=== PATIENT | male | born 1970 | race Caucasian/White ===

== ENCOUNTER 2016-12-10 22:37 | Emergency (ER) | payer MEDICAID ==
[~2016-12-10] VITALS: Ht 180.3 cm; Wt 68.0 kg
[2016-12-10 22:45] VITALS: BP 149/100
--- NOTE | 2016-12-11 06:03 | NUR ---
TO ER BED 5
--- NOTE | 2016-12-11 06:03 | NUR ---
47 Y/O M W/C/O CHEST PAIN WHILE LYING DOWN,BOTH HANDS TINGLING FOR 2 DAYS. NO S/S OF DISTRESS NOTED AT THE MOMENT.
[2016-12-11] MEDS ORDERED: DICYCLOMINE HCL LIQUID 20 MG, ALUMINUM HYD/MAG/SIMETHICONE 30 ML, LIDOCAINE VISCOUS 2% ... PO ONE ×3 (07:00)
[2016-12-11] MEDS ORDERED: KETOROLAC 60 MG/2 ML VIAL IM ONE (07:00)
[2016-12-11] MEDS ORDERED: ONDANSETRON 4 MG ODT PO ONE (07:00)
--- NOTE | 2016-12-11 07:02 | NUR ---
REPORT GIVEN TO MARIA ALEJANDRA MEDRANO. PT STABLE ON MONITOR.
--- NOTE | 2016-12-11 07:08 | NUR ---
REPORT GIVEN TO MARIA ALEJANDRA EATON.
--- NOTE | 2016-12-11 07:08 | NUR ---
RECEIVED REPORT FROM MARIA ALEJANDRA CAMACHO.Patient appears to be resting comfortably in bed. Vital Signs within normal limits. Respirations even and unlabored.WILL CONTINUE TO MONITOR
[2016-12-11 07:34] LABS: BASOPHILS # (AUTO) 0.6 K/uL (0.00-0.22); BASOPHILS % (AUTO) 4.3 % (0.0-2.0); EOSINOPHILS # (AUTO) 0.1 K/uL (0-0.4); EOSINOPHILS % (AUTO) 0.7 % (0.0-4.0); HEMATOCRIT 51.1 % (36-52); LYMPHOCYTES # (AUTO) 1.1 K/uL (2.0-11.5); LYMPHOCYTES % (AUTO) 7.5 % (20.5-51.1); MEAN CORPUSCULAR HEMOGLOBIN 31 pg (27-31); MEAN CORPUSCULAR HGB CONC 33 g/dL (33-37); MEAN CORPUSCULAR VOLUME 93 fL (80-94); MONOCYTES # (AUTO) 1.3 K/uL (0.8-1.0); MONOCYTES % (AUTO) 8.3 % (1.7-9.3); NEUTROPHILS % (AUTO) 79.2 % (42.2-75.2); PLATELET COUNT (AUTO) 279 K/uL (140-450); RED BLOOD CELL COUNT(AUTO) 5.47 MIL/uL (4.20-6.10); RED CELL DISTRIBUTION WIDTH 12.2 % (11.6-13.7)
[2016-12-11 07:50] LABS: ANION GAP 13.2 (8-16); CARBON DIOXIDE 29.9 mmol/L (21-32); CREATININE 0.8 mg/dL (0.6-1.3); POTASSIUM 3.1 mmol/L (3.5-5.1)
[2016-12-11 07:53] LABS: WHITE BLOOD COUNT (AUTO) 15.1 K/uL (4.8-10.8)
[2016-12-11] MEDS ORDERED: POTASSIUM CHLORIDE 10 MEQ TABER PO ONE ×2 (08:00→08:15)
[2016-12-11 08:03] LABS: ALBUMIN 3.6 g/dL (3.4-5.0); TOTAL PROTEIN, SERUM 7.5 g/dL (6.4-8.2)
[2016-12-11 09:18] VITALS: BP 128/83
--- NOTE | 2016-12-11 09:18 | NUR ---
Patient discharged with v/s stable. Written and verbal after care instructions given and explained. Patient verbalized understanding. Ambulatory with steady gait. All questions addressed prior to discharge. Advised to follow up with PMD.
== END 2016-12-11 09:18 | disposition home or self-care (01) ==
LOC: MED 22:37 → EDBD 22:37 → MED 12-11 09:18
DX: G62.9 Polyneuropathy, unspecified (principal); E87.6 Hypokalemia; F19.10 Other psychoactive substance abuse, uncomplicated; R07.89 Other chest pain
CPT/HCPCS: 36415; 71010; 80053; 83880; 84484; 85025; 93005; 96372; 99285; J1885; Q0092; S0119

== ENCOUNTER 2017-02-28 16:28 | Inpatient (IN) | payer MEDICAID ==
[~2017-02-28] VITALS: Ht 180.3 cm; Wt 68.0 kg
[2017-02-28 16:46] VITALS: BP 148/104
--- NOTE | 2017-02-28 16:49 | NUR ---
PATIENT TO LOBBY PER ERMD
[2017-02-28] MEDS ORDERED: IBUPROFEN 600 MG TAB PO ONE (17:45)
[2017-02-28] MEDS ORDERED: CYCLOBENZAPRINE 10 MG TAB PO ONE (17:45)
[2017-02-28] MEDS ORDERED: ACETAMINOPHEN EXTRA STRENGTH 500 MG TAB PO ONE (17:45)
--- NOTE | 2017-02-28 17:48 | NUR ---
Pt placed in bed 7 via w/c.
[2017-02-28] MEDS ORDERED: KETOROLAC 60 MG/2 ML VIAL IM ONE (17:50)
[2017-02-28] MEDS ORDERED: ONDANSETRON 4 MG ODT PO ONE (17:55)
--- NOTE | 2017-02-28 18:01 | NUR ---
Patient being evaluated by physician at bedside.
--- NOTE | 2017-02-28 18:12 | NUR ---
46/M biba for evaluation of lower back pain. Pt is homeless. Pt denies any injury or trauma to back. Pt states he has had the pain for the past 5 years but worse today. Pt c/o 10/10 pain. Pt also c/o N/V. No vomiting noted at this time while pt is in bed 7. Pt is AOX4, speech garbled. Afebrile. VSS.
--- NOTE | 2017-02-28 18:16 | NUR ---
Pt taken to CT via rkath.
--- NOTE | 2017-02-28 18:31 | NUR ---
Pt returned from CT scan and placed in bed 7.
--- NOTE | 2017-02-28 18:40 | NUR ---
Patient appears to be resting comfortably in bed. Pt continues to c/o 10/10 pain. Pt is lying on left side, with blanket over his head.
[2017-02-28] MEDS ORDERED: ATROPINE 0.5 MG/5 ML SYR IVP ONE (18:55)
--- NOTE | 2017-02-28 18:55 | NUR ---
ATROPINE 0.5 MG IVP NOT GIVEN WITH THE INSTRUCTION OF DR. SINGLETON TO GIVE IT WHEN HR REACH TO 40 BPM. HEART RATE BEEN 55-70.
--- NOTE | 2017-02-28 18:55 | NUR ---
PATIENT BEEN ASYMPTOMATIC. CONTINUE TO MONITOR
--- NOTE | 2017-02-28 18:57 | NUR ---
X-Ray at bedside.
--- NOTE | 2017-02-28 19:16 | NUR ---
defib pads applied to chest per Dr. Russell order for precaution.
[2017-02-28 19:19] LABS: BASOPHILS # (AUTO) 0.1 K/uL (0.00-0.22); BASOPHILS % (AUTO) 0.9 % (0.0-2.0); EOSINOPHILS # (AUTO) 0.2 K/uL (0-0.4); HEMATOCRIT 45.8 % (36-52); LYMPHOCYTES # (AUTO) 0.7 K/uL (2.0-11.5); LYMPHOCYTES % (AUTO) 6.9 % (20.5-51.1); MEAN CORPUSCULAR HEMOGLOBIN 32 pg (27-31); MEAN CORPUSCULAR HGB CONC 33 g/dL (33-37); MEAN CORPUSCULAR VOLUME 97 fL (80-94); MONOCYTES # (AUTO) 0.9 K/uL (0.8-1.0); MONOCYTES % (AUTO) 8.5 % (1.7-9.3); NEUTROPHILS # (AUTO) 8.4 K/uL (1.8-7.7); NEUTROPHILS % (AUTO) 81.7 % (42.2-75.2); PLATELET COUNT (AUTO) 230 K/uL (140-450); RED BLOOD CELL COUNT(AUTO) 4.74 MIL/uL (4.20-6.10); RED CELL DISTRIBUTION WIDTH 12.3 % (11.6-13.7); WHITE BLOOD COUNT (AUTO) 10.3 K/uL (4.8-10.8)
--- NOTE | 2017-02-28 19:24 | NUR ---
Pt report given to Jenaro BESS. Transfer of care at this time.
[2017-02-28 19:33] LABS: INR 1.1 (0.8-1.2); PARTIAL THROMBOPLASTIN TIME 27.4 secs (22-35.6); PROTHROMBIN TIME 10.9 secs (10.8-13.4)
[2017-02-28 19:35] LABS: ALBUMIN 3.7 g/dL (3.4-5.0); ANION GAP 10.2 (8-16); CALCIUM 8.5 mg/dL (8.5-10.1); CREATININE 0.9 mg/dL (0.7-1.3); POTASSIUM 4.2 mmol/L (3.5-5.1); TOTAL BILIRUBIN 0.6 mg/dL (0.0-1.0); TOTAL PROTEIN, SERUM 7.2 g/dL (6.4-8.2)
[2017-02-28] MEDS ORDERED: HYDROcodone/APAP 7.5/325 MG 1 TAB PO PRN (19:40)
[2017-02-28] MEDS ORDERED: MORPHINE SULFATE 2 MG/ML SYR IVP PRN (19:40)
[2017-02-28] MEDS ORDERED: ACETAMINOPHEN 325 MG TAB PO PRN (19:40)
[2017-02-28] MEDS ORDERED: DEXAMETHASONE 10 MG/ML VIAL IVP ONE (19:40)
[2017-02-28] MEDS ORDERED: DOCUSATE SODIUM 100 MG GELCAP PO PRN (19:40)
--- NOTE | 2017-02-28 19:44 | NUR ---
Patient appears to be resting comfortably in bed. Vital Signs within normal limits. Respirations even and unlabored.
[2017-02-28] MEDS ORDERED: LORazepam 0.5 MG TAB PO PRN (20:05)
--- NOTE | 2017-02-28 20:13 | NUR ---
Patient will be admitted to care of DR CONTE. Admited to TELE 111A . Will go to room 111A. Belongings list completed. Report to AMEENA BESS .
--- NOTE | 2017-02-28 20:13 | NUR ---
ATROPINE 0.5 MG IVP NOT GIVEN WITH THE INSTRUCTION OF DR. SINGLETON TO GIVE IT WHEN HR REACH TO 40 BPM. HEART RATE BEEN 57 NOW. AMEENA BESS HAS BEEN INFORMED
[2017-02-28 20:21] LABS: CHOL/HDL RATIO 2.1 (1-4.5); MAGNESIUM 1.9 mg/dL (1.8-2.4); PHOSPHORUS 2.7 mg/dL (2.5-4.9); THYROID STIMULATING HORMONE 3.08 uIU/mL (0.34-3.74)
--- NOTE | 2017-02-28 20:30 | NUR ---
ADMITTED A 46 Y/O MALE FROM ED VIA [facility] FRAIRE. PT ON TELEMETRY FOR DX OF BRADYCARDIA. UPON FACE TO FACE ASSESSMENT, PT PRESENTS ANGRY MOOD EVIDENCE BY THROWING THE PHONE. PT IS SO ANXIOUS, WANTING TO CALL HIS BROTHER. ATTEMPTED TO DE-ESCALATE PATIENT'S BX AND REDIRECT HIM,HOWEVER, PT STARTS THREATENING STAFF AND THROWING AGAIN THE PHONE. CHARGE NURSE AND SECURITY ON SCENE. PT PULLED HIS IV ACCESS,REINFORCED DRESSING TO STOP THE BLEEDING. TRANSFERRED PT TO ANOTHER ROOM FOR ROOMMATE'S SAFETY. THIS SUCCESS COACH DIALED THE PHONE AND WAS ABLE TO CONTACT SYMONE (BROTHER), PT ABLE TO TALK TO HIS BROTHER. SECURITY AT THE BEDSIDE. WILL CALL MD FOR ORDERS. Admitted from , with chief complaint of RIGHT LOW BACK PAIN , 46 y/o ,Male, Appropriate, oriented to call light, bed, phone,television, bathroom, smoking policy, visiting hours, procedures, ID bracelet on. Belongings list checked.
[2017-02-28 20:39] LABS: FREE T4 (FREE THYROXINE) 1.02 ng/dL (0.76-1.46)
--- NOTE | 2017-02-28 20:45 | NUR ---
SPOKE WITH DR. DAMIAN(LABORER DRYING DEPARTMENT), DISCUSSED PATIENT'S BEHAVIOR UPON ADMISSION. HE STATES HE'LL ORDER ATIVAN.
[2017-02-28] MEDS ORDERED: LORazepam 2 MG/ML VIAL IM/IVP PRN (20:55)
[2017-02-28 21:00] VITALS: BP 146/78
--- NOTE | 2017-02-28 21:20 | NUR ---
PT CALM AT THIS TIME, RESTING IN BED. PT APOLOGIZED FOR HIS BEHAVIOR. INSTRUCTED TO BE CALM AND RELAX. EDUCATED RE: SAFETY AND FALL PREVENTION. PT REFUSES SKIN ASSESSMENT DESPITE EXPLANATIONS OF IMPORTANCE OF CHECKING ANY SKIN ISSUES. VISIBLE SKIN AREAS NOTED CLEAR AND INTACT. CHARGE NURSE ABLE TO INSERT A NEW IV ACCESS TO LEFT HAND, GAUGE 20. NO FURTHER BX OUTBURST AT THIS TIME. WILL CONTINUE TO MONITOR.
[2017-02-28] MEDS: NACL 0.9% 1,000 ML IV SCH (21:49)
--- NOTE | 2017-02-28 21:49 | NUR ---
STARTED IVF NS @ 100ML/HR, TOLERATING WELL. PT ASLEEP AT THIS TIME.
[2017-03-01] VITALS (8 sets, daily range): BP systolic 124–156; BP diastolic 64–92
[2017-03-01] MEDS: NACL 0.9% 1,000 ML IV SCH ×2 (05:36→15:36)
--- NOTE | 2017-03-01 07:04 | NUR ---
PATIENT HAS BEEN SCREENED AND CATEGORIZED MODERATE NUTRITION RISK. PATIENT WILL BE SEEN WITHIN 3-5 DAYS OF ADMISSION. 03/02/17-03/04/17 JUSTIN RICHARDSON MS, RDN
--- NOTE | 2017-03-01 07:21 | NUR ---
ASSUMED CONTINUITY OF CARE. NO SIGNS AND SYMPTOMS OF ACUTE DISTRESS NOTED. INITIAL ASSESSMENT DONE. NON-COMPLIANT. REFUSED IVF INFUSION. KEEP COMFORTABLE ON BED. CALL LIGHT WITHIN REACH.
--- NOTE | 2017-03-01 07:22 | NUR ---
Patient's Plan of Care was discussed and reviewed with SPECIAL POLICE OFFICER: JOBY Cervantes
--- NOTE | 2017-03-01 07:29 | NUR ---
PT SLEEPING AT THIS TIME. NO S/S OF RESPIRATORY DISTRESS THROUGHOUT THE SHIFT. PT IN STABLE CONDITION. ENDORSED TO NEXT SHIFT FOR CONTINUITY OF CARE.
[2017-03-01 10:21] LABS: T4 (THYROXINE) 8.4 ug/dL (4.5-12.0)
--- NOTE | 2017-03-01 11:30 | NUR ---
INSERTED NEW IV ACCES ON RIGHT FOREARM WITH GAUGE #22. TOLERATED WELL. STILL REFUSED IVF INFUSION. INFORMED CHARGE NURSE FRANSISCO TOBIN.
[2017-03-01 12:23] LABS: HEMOGLOBIN A1C 5.4 % (4.8-5.6)
[2017-03-01] MEDS: ONDANSETRON 4 MG/2 ML VIAL IM/IVP PRN (12:26)
--- NOTE | 2017-03-01 14:00 | NUR ---
C/O CHEST PAIN 03/10. NO ACUTE DISTRESS NOTED. KEEP COMFORTABLE ON BED. TEMP 98.4, BP 144/78, HR 51, RESP 16, O2 SAT 95% ON ROOM AIR. INFORMED CHARGE NURSE FRANSISCO TOBIN. ALSO INFORMED SAMMY RENTERIA.
--- NOTE | 2017-03-01 14:10 | NUR ---
EXTRUSION MACHINE OPERATOR CAME FOR PT. STAT EKG. PT. ON BED, NO ACUTE DISTRESS NOTED. WILL MONITOR.
--- NOTE | 2017-03-01 17:55 | NUR ---
APPLIED K-PAD PER MD ORDER. TOLERATED WELL.
[2017-03-01] MEDS: KETOROLAC 30 MG/ML VIAL IM SCH (18:44)
--- NOTE | 2017-03-01 19:08 | NUR ---
BEDSIDE REPORT GIVEN TO AUGUSTINE ONEAL -MARIA ALEJANDRA. IN STABLE CONDITION. ALSO ENDORSED ABOUT MD ORDER OF LIVER.
--- NOTE | 2017-03-01 19:30 | NUR ---
RECEIVED REPORT FROM DAY RN AT BEDSIDE, PATIENT AAOX4 ON ROOM AIR, NO SOB OR SIGN OF DISTRESS, IV TO RIGHT FA PATENT AND INTACT, PT REFUSES IV FLUIDS AT THIS TIME, SKIN INTACT, PT DENIES PAIN AT THIS TIME, DISCUSSED PLAN OF CARE WITH PT, PT VERBALIZED UNDERSTANDING, CALL LIGHT WITHIN REACH. WILL CONTINUE TO MONITOR.
--- NOTE | 2017-03-01 20:32 | NUR ---
PT SLEEPING, NO SIGN OF DISTRESS, CALL LIGHT WITHIN REACH. WILL CONTINUE TO MONITOR
[2017-03-02] VITALS: BP 146/88
[2017-03-02] MEDS: KETOROLAC 30 MG/ML VIAL IM SCH ×5 (00:01→18:05)
--- NOTE | 2017-03-02 00:05 | NUR ---
VITAL SIGNS STABLE, NO SOB OR SIGN OF DISTRESS, CALL LIGHT WITHIN REACH. WILL CONTINUE TO MONITOR
[2017-03-02] MEDS: NACL 0.9% 1,000 ML IV SCH ×3 (01:36→21:36)
--- NOTE | 2017-03-02 02:00 | NUR ---
PT SLEEPING, NO SOB OR SIGN OF DISTRESS, WILL CONTINUE TO MONITOR.
[2017-03-02] MEDS: ONDANSETRON 4 MG/2 ML VIAL IM/IVP PRN (03:06)
--- NOTE | 2017-03-02 03:10 | NUR ---
PT VOMITED AND STATED ANY TIME HE EATS OR DRINKS ANYTHING HE GETS SICK, ADMINISTERED ZOFRAN PER MD ORDER, WILL CONTINUE TO MONITOR.
[2017-03-02 04:00] VITALS: BP 135/83
--- NOTE | 2017-03-02 04:28 | NUR ---
VITAL SIGNS STABLE, NO SIGN OF DISTRESS, PT SLEEPING, WILL CONTINUE TO MONITOR.
[2017-03-02 07:21] LABS: BASOPHILS # (AUTO) 0.2 K/uL (0.00-0.22); BASOPHILS % (AUTO) 2.7 % (0.0-2.0); EOSINOPHILS # (AUTO) 0.2 K/uL (0-0.4); EOSINOPHILS % (AUTO) 1.7 % (0.0-4.0); HEMATOCRIT 47.9 % (36-52); HEMOGLOBIN 15.7 g/dL (12.0-18.0); LYMPHOCYTES # (AUTO) 0.8 K/uL (2.0-11.5); MEAN CORPUSCULAR HEMOGLOBIN 32 pg (27-31); MEAN CORPUSCULAR HGB CONC 33 g/dL (33-37); MEAN CORPUSCULAR VOLUME 96 fL (80-94); MONOCYTES # (AUTO) 0.6 K/uL (0.8-1.0); MONOCYTES % (AUTO) 6.4 % (1.7-9.3); NEUTROPHILS # (AUTO) 7.4 K/uL (1.8-7.7); NEUTROPHILS % (AUTO) 80.2 % (42.2-75.2); PLATELET COUNT (AUTO) 235 K/uL (140-450); RED BLOOD CELL COUNT(AUTO) 4.97 MIL/uL (4.20-6.10); RED CELL DISTRIBUTION WIDTH 12.3 % (11.6-13.7); WHITE BLOOD COUNT (AUTO) 9.2 K/uL (4.8-10.8)
--- NOTE | 2017-03-02 07:28 | NUR ---
ASSUMED CONTINUITY OF CARE. NO SIGNS AND SYMPTOMS OF ACUTE DISTRESS NOTED. INITIAL ASSESSMENT DONE. REFUSED IVF INFUSION. KEEP COMFORTABLE ON BED. EXPLAINED DIAGNOSIS, PLAN OF CARE, PAIN MANAGEMENT TEACHING, USE OF K-PAD, SAFETY, USE OF CALL LIGHT/BED/TV/BATHROOM. VERBALIZED UNDERSTANDING. SEIZURE AND FALL PRECAUTION APPLIED. CALL LIGHT WITHIN REACH.
--- NOTE | 2017-03-02 07:28 | NUR ---
ENDORSED PATIENT TO DAY RN AT BEDSIDE, PATIENT IN STABLE CONDITION
[2017-03-02 07:43] LABS: ANION GAP 10.8 (8-16); CALCIUM 8.5 mg/dL (8.5-10.1); CARBON DIOXIDE 29.8 mmol/L (21-32); CREATININE 0.9 mg/dL (0.7-1.3); POTASSIUM 3.6 mmol/L (3.5-5.1)
[2017-03-02 08:00] VITALS: BP 122/78
[2017-03-02] MEDS: METHOCARBAMOL 500 MG TAB PO SCH ×3 (08:36→17:09)
[2017-03-02 11:55] VITALS: BP 143/73
--- NOTE | 2017-03-02 13:48 | NUR ---
DR. FAULKNER CAME, SEEN PT. AND CHECKED PT. CHART.
--- NOTE | 2017-03-02 15:24 | NUR ---
SLEEPING WELL. NO DISCOMFORT NOTICED. CALL LIGHT WITHIN REACH.
[2017-03-02 16:00] VITALS: BP 143/93
[2017-03-02 16:43] LABS: APPEARANCE,URINE CLEAR (CLEAR); BLOOD, URINE NEGATIVE (NEGATIVE); COLOR,URINE YELLOW (YELLOW); LEUKOCYTE ESTERASE ,URINE NEGATIVE (NEGATIVE); NITRITE, URINE NEGATIVE (NEGATIVE); PROTEIN,URINE 1+ (NEGATIVE); UGLUCOSE NEGATIVE (NEGATIVE); UROBILINOGEN,URINE 0.2 EU/dL (0.2 - 1)
[2017-03-02 16:47] LABS: BILIRUBIN,URINE NEGATIVE (NEGATIVE)
[2017-03-02 16:49] LABS: AMPHETAMINE, URINE POS. ng/ml (NEG <=1000); BARBITURATE, URINE NEG. ng/ml (NEG <=200); BENZODIAZEPINE, URINE NEG. ng/mL (NEG <=200); CANNABINOID, URINE NEG. ng/mL (NEG <=50); COCAINE, URINE NEG. ng/mL (NEG <=300); OPIATE, URINE NEG. ng/mL (NEG <=2000); PHENCYCLIDINE SCREEN,URINE NEG. ng/mL (NEG <=25)
[2017-03-02 16:50] LABS: BACTERIA,URINE RARE /HPF (None Seen); MUCUS,URINE 4+ /LPF (None Seen); RBC,URINE 0-3 /HPF (0-5); SQUAMOUS EPITHELIAL CELL,UR 0-3 /LPF (0-3 (FEW)); WBC,URINE 0-3 /HPF (0-5)
--- NOTE | 2017-03-02 19:16 | NUR ---
ENDORSED TO AUGUSTINE TOBIN. IN STABLE CONDITION.
--- NOTE | 2017-03-02 19:30 | NUR ---
RECEIVED REPORT FROM MELLY CAMPUZANO AT BEDSIDE, PATIENT IS AAOX4 RESTING IN BED, ON ROOM AIR, NO SIGN OF DISTRESS, IV TO RIGHT FA PATENT AND INTACT, PT REFUSES IV FLUIDS AT THIS TIME, SKIN INTACT, DENIES PAIN, DISCUSSED PLAN OF CARE WITH PT, PT VERBALIZED UNDERSTANDING, CALL LIGHT WITHIN REACH. WILL CONTINUE TO MONITOR.
--- NOTE | 2017-03-02 21:24 | NUR ---
PT ASKING FOR SLEEP MEDICATION, SPOKE TO DR RICKIE MD TO PUT IN ORDERS. WILL F/U
[2017-03-02] MEDS ORDERED: ZOLPIDEM 5 MG TAB PO PRN (21:30)
[2017-03-03] VITALS: BP 137/87
[2017-03-03] MEDS: KETOROLAC 30 MG/ML VIAL IM SCH ×3 (00:09→11:56)
--- NOTE | 2017-03-03 00:16 | NUR ---
VITAL SIGNS STABLE, NO SIGN OF DISTRESS, PT SLEEPING, CALL LIGHT WITHIN REACH. WILL CONTINUE TO MONITOR.
--- NOTE | 2017-03-03 02:38 | NUR ---
PT SLEEPING, NO SIGN OF DISTRESS, CALL LIGHT WITHIN REACH. WILL CONTINUE TO MONITOR
--- NOTE | 2017-03-03 04:28 | NUR ---
PT SLEEPING NO SIGN OF DISTRESS, CALL LIGHT WITHIN REACH. WILL CONTINUE TO MONITOR.
[2017-03-03 06:08] LABS: ANION GAP 10.1 (8-16); CALCIUM 8.8 mg/dL (8.5-10.1); CARBON DIOXIDE 32.8 mmol/L (21-32); POTASSIUM 3.9 mmol/L (3.5-5.1)
--- NOTE | 2017-03-03 07:23 | NUR ---
ENDORSED PATIENT TO DAY RN AT BEDSIDE, PATIENT IN STABLE CONDITION
--- NOTE | 2017-03-03 07:23 | NUR ---
RECEIVED PT REPORT AT BEDSIDE FROM NIGHT NURSE. PT IS AAOX4 AND SHOWS NO S/S OF DISTRESS ON ROOM AIR. PT HAS A NOTE IV ON THE R FA SALINE LOCKED. PT SKIN IS INTACT. PT DOES NOT C/O PAIN. PT IS AWARE OF POC FOR TODAY. PT VERBALIZED UNDERSTANDING. PT'S BED IS LOWERED WITH CALL LIGHT WITHIN REACH.
[2017-03-03] MEDS: NACL 0.9% 1,000 ML IV SCH (07:36)
[2017-03-03 08:00] VITALS: BP 138/73
[2017-03-03] MEDS: METHOCARBAMOL 500 MG TAB PO SCH ×2 (09:21→11:56)
--- NOTE | 2017-03-03 09:25 | NUR ---
ADMINISTERED SCHEDULED MEDICATIONS. PT DENIES PAIN AND SOB. PT SHOWS NO S/S OF DISTRESS ON ROOM AIR. PT BED LOWERED WITH CALL LIGHT WITHIN REACH. WILL CONTINUE TO MONITOR.
--- NOTE | 2017-03-03 09:40 | NUR ---
FOUND PT WITH IV DISCONTINUED WITH IV CANNULA STILL INTACT. PT STATED IS CAME OFF ON ITS OWN. WILL ADMINISTER A NEW IV.
--- NOTE | 2017-03-03 10:50 | NUR ---
WALKED INTO PT ROOM AND SMELLED OF CIGARETTE SMOKE. PT WAS EDUCATED ON NOT SMOKING IN HOSPITAL. PT VERBALIZED UNDERSTANDING. WILL CONTINUE TO MONITOR.
[2017-03-03] MEDS ORDERED: NACL 0.9% 1,000 ML IV SCH (11:25)
--- NOTE | 2017-03-03 11:26 | NUR ---
PT IS IN ROOM AND SHOWS NO S/S OF DISTRESS ON ROOM AIR. PT OKAY TO BE DISCHARGED AWAITING FOR ORDERS.
--- NOTE | 2017-03-03 11:31 | NUR ---
SS NOTE: I SPOKE WITH PT BEDSIDE AND OFFERED TO PROVIDE PT WITH RESOURCES. PT ACCEPTED THE HOMELESS RESOURCES AND STATED THAT HE PLANS TO GO BACK TO WHERE HE WAS STAYING IN [place] THE [place]. HE DECLINED SUBSTANCE ABUSE RESOURCES, STATING THAT HE "ONLY DOES MARIJUANA AND SPICE". I INFORMED PT THAT PT'S UDS SHOWED POSITIVE FOR AMPHETAMINES, PT VERBALIZED UNDERSTANDING AND REQUESTED FOR MORE FOOD.
--- NOTE | 2017-03-03 12:10 | NUR ---
ADMINISTERED SCHEDULED MEDICATIONS. PT IS IN BED EATING LUNCH NOW. PT IS TOLERATING ACTIVITY WELL. PT OKAY TO BE DISCHARGED BY MD. SPOKE WITH PT FAMILY AND THEY ARE AWARE.
[2017-03-03] MEDS ORDERED: METH500T14 PO (12:39)
[2017-03-03] MEDS ORDERED: ACET-2863 PO (12:39)
--- NOTE | 2017-03-03 13:17 | NUR ---
CM NOTE PER [employer]ED [employer] OFFICER PILAR, FAX REVIEW TO [facility] [phone] PH [phone]. FAXED INITIAL REVIEW TO [facility] [phone]
--- NOTE | 2017-03-03 13:59 | NUR ---
PT SHOWS NO S/S OF DISTRESS ON ROOM AIR. PT HAS SIGNED ALL DISCHARGE INSTRUCTIONS AND PRESCRIPTIONS. PT WAS GIVEN ALL PAPERWORK. ALL QUESTIONS WERE ANSWERED. PT VERBALIZED UNDERSTANDING OF PAPERWORK. ALL BELONGINGS AND PRESCRIPTIONS IN PT POSSESSION. WRISTBANDS WERE REMOVED. PT IS AWAITING FOR RIDE TO GET TO HOSPITAL.
[2017-03-03] MEDS ORDERED: ONDA4TAB PO (14:29)
--- NOTE | 2017-03-03 15:10 | NUR ---
PT RIDE ARRIVED. PT WAS GIVEN INFORMATION REGARDING RESOURCES FOR THE HOMELESS PACKAGE. PT VERBALIZED UNDERSTANDING OF INSTRUCTIONS. PT WAS OFFERED A WHEELCHAIR TO LEAVE UNIT. PT LEFT UNIT IN STABLE CONDITION.
== END 2017-03-03 15:10 | disposition home or self-care (01) | DRG 201 ==
LOC: MED 16:28 → MTU 19:13
PROVIDERS: ADMIT Family Medicine; ATTEND Family Medicine
DX: R00.1 Bradycardia, unspecified (principal); F31.2 Bipolar disorder, current episode manic severe with psychotic features; B19.20 Unspecified viral hepatitis C without hepatic coma; M54.5 Low back pain; G89.29 Other chronic pain; K80.20 Calculus of gallbladder without cholecystitis without obstruction; F15.90 Other stimulant use, unspecified, uncomplicated; R11.2 Nausea with vomiting, unspecified; R10.9 Unspecified abdominal pain; Z59.0 Homelessness
CPT/HCPCS: 36415; 71010; 72110; 74000; 76705; 80048; 80053; 80305; 81001; 82040; 82150; 83036; 83690; 83735; 83880; 84100; 84436; 84439; 84443; 84479; 84484; 85025; 85610; 85651; 85730; 86140; 87040; 87081; 93005; 96372; 99291; J1885; J2060; J2270; J2405; J7030; Q0092; S0119

== ENCOUNTER 2017-03-10 08:41 | Emergency (ER) | payer MEDICAID ==
[~2017-03-10] VITALS: Ht 180.3 cm; Wt 61.7 kg
[~2017-03-10 08:41] MED LIST: ACET-2863 PO; METH500T14 PO; ONDA4TAB PO
[2017-03-10 08:57] VITALS: BP 122/85
--- NOTE | 2017-03-10 09:01 | NUR ---
PT AMBULATED TO BED 3.
--- NOTE | 2017-03-10 09:19 | NUR ---
PATIENT PRESENTS TO ED WITH ABDOMINAL PAIN WITH N/V UNABLE TO TOLERATE PO'S X2 WKS . PT STATES [DENIES LOOSE/WATERY STOOLS. SKIN IS PINK/WARM/DRY; AAOX4 WITH EVEN AND STEADY GAIT; LUNGS CLEAR BL; HR EVEN AND REGULAR; PT DENIES ANY FEVER, CP, SOB, OR COUGH AT THIS TIME; PATIENT STATES PAIN OF 9/10 AT THIS TIME; VSS; PATIENT POSITIONED FOR COMFORT; HOB ELEVATED; BEDRAILS UP X2; BED DOWN. ER MD MADE AWARE OF PT STATUS.
--- NOTE | 2017-03-10 09:23 | NUR ---
REQUESTING ORANGE JUICE----WILL INFORM MD FOR POSSIBLE ANTIEMETIC PRIOR TO PO INTAKE
[2017-03-10] MEDS ORDERED: NACL 0.9% 500 ML IV ONE (10:06)
[2017-03-10] MEDS ORDERED: ONDANSETRON 4 MG/2 ML VIAL IVP ONE (10:10)
[2017-03-10] MEDS ORDERED: KETOROLAC 30 MG/ML VIAL IVP ONE (10:10)
--- NOTE | 2017-03-10 10:35 | NUR ---
ULTRASOUND AT BEDSIDE
[2017-03-10 11:18] LABS: HEMATOCRIT 49.9 % (36-52); HEMOGLOBIN 16.5 g/dL (12.0-18.0); MEAN CORPUSCULAR HEMOGLOBIN 32 pg (27-31); MEAN CORPUSCULAR HGB CONC 33 g/dL (33-37); MEAN CORPUSCULAR VOLUME 96 fL (80-94); PLATELET COUNT (AUTO) 240 K/uL (140-450); RED BLOOD CELL COUNT(AUTO) 5.18 MIL/uL (4.20-6.10); RED CELL DISTRIBUTION WIDTH 12.4 % (11.6-13.7); WHITE BLOOD COUNT (AUTO) 7.7 K/uL (4.8-10.8)
[2017-03-10 11:26] LABS: BAND % (MANUAL) 1 % (0-8); EOSINOPHILS % (MANUAL) 1 % (0-4); LYMPHOCYTES % (MANUAL) 8 % (20-46); MONOCYTES % (MANUAL) 10 % (5-12)
[2017-03-10 11:27] LABS: NEUTROPHILS % (MANUAL) 80 (43-65)
[2017-03-10 11:29] LABS: ALBUMIN 3.6 g/dL (3.4-5.0); ANION GAP 8.9 (8-16); CALCIUM 8.6 mg/dL (8.5-10.1); CARBON DIOXIDE 33.9 mmol/L (21-32); CREATININE 0.9 mg/dL (0.7-1.3); TOTAL BILIRUBIN 0.5 mg/dL (0.0-1.0); TOTAL PROTEIN, SERUM 7.4 g/dL (6.4-8.2)
[2017-03-10 11:39] LABS: POTASSIUM 2.8 mmol/L (3.5-5.1)
--- NOTE | 2017-03-10 12:34 | NUR ---
AWARE OF LOW K REPORTED BY LAB---PT RESTING WITH OU CLOSED NO S/S RESP DISTRESS---NSR ON MONITOR---NO EMESIS AND NO FURTHER C/O PAIN AT THIS TIME
[2017-03-10] MEDS ORDERED: POTASSIUM CHLORIDE 10 MEQ TABER PO ONE (12:35)
--- NOTE | 2017-03-10 13:08 | NUR ---
3RD GRADE READING TEACHER CALLED AT THE REQUEST OF PT---PT NEEDS HELP WITH PURCHASING RX , ALSO A BUS PASS ALTHOUGH HE CONTINUES TO REFUSE PACKET. ALSO PT REQUESTED TO BE SHOWN HOW TO GET TO OFFICE TO RESCHEDULE APPT
[2017-03-10 13:10] VITALS: BP 142/66
== END 2017-03-10 13:08 | disposition home or self-care (01) ==
LOC: MED 08:41
DX: R10.9 Unspecified abdominal pain (principal); E87.6 Hypokalemia; R03.0 Elevated blood-pressure reading, without diagnosis of hypertension
CPT/HCPCS: 36415; 76705; 80053; 82150; 83690; 85025; 96361; 96374; 96375; 99285; J1885; J2405; J7030; Q0092

== ENCOUNTER 2017-03-11 05:35 | Emergency (ER) | payer MEDICAID ==
[~2017-03-11] VITALS: Ht 180.3 cm; Wt 72.6 kg
--- NOTE | 2017-03-11 05:35 | NUR ---
Dr. Carlton evaluating patient at bedside.
--- NOTE | 2017-03-11 05:35 | NUR ---
PT TERESA BLS. TAKEN TO BED 6
[2017-03-11 05:40] VITALS: BP 142/86
[2017-03-11] MEDS ORDERED: KETOROLAC 30 MG/ML VIAL IM ONE (05:40)
--- NOTE | 2017-03-11 05:42 | NUR ---
46Y/M PT. BIBA TO ED WITH C/O ABDOMINAL PAIN X 3 DAYS. PT. WAS SEEN BY ER MD YESTERDAY, DIAGNOSED GALL STONE, TODAY PAIN INCREASE, DENIES N/V/D; SKIN IS PINK/WARM/DRY; AAOX4 WITH EVEN AND STEADY GAIT; LUNGS CLEAR BL; HR EVEN AND REGULAR; PT DENIES ANY FEVER, CP, SOB, OR COUGH AT THIS TIME; PATIENT STATES PAIN OF 9/10 AT THIS TIME; VSS; PATIENT POSITIONED FOR COMFORT; HOB ELEVATED; BEDRAILS UP X2; BED DOWN. ER MD MADE AWARE OF PT STATUS.
[2017-03-11 06:37] VITALS: BP 140/77
--- NOTE | 2017-03-11 06:37 | NUR ---
Patient discharged with v/s stable. Written and verbal after care instructions given and explained. Patient alert, oriented and verbalized understanding of instructions. Ambulatory with steady gait. All questions addressed prior to discharge. ID band removed. Patient advised to follow up with PMD. Rx of BENTYL 20 MG given. Patient educated on indication of medication including possible reaction and side effects. Opportunity to ask questions provided and answered.
== END 2017-03-11 06:37 | disposition home or self-care (01) ==
LOC: MED 05:35
DX: R10.10 Upper abdominal pain, unspecified (principal); F12.10 Cannabis abuse, uncomplicated; F17.210 Nicotine dependence, cigarettes, uncomplicated
CPT/HCPCS: 96372; 99283; J1885

== ENCOUNTER 2017-11-10 12:28 | Inpatient (IN) | payer MEDICAID ==
[~2017-11-10] VITALS: Ht 180.3 cm; Wt 77.1 kg
--- NOTE | 2017-11-10 12:30 | NUR ---
PT BIBA C/O ABDOMINAL PAIN
[2017-11-10 12:40] VITALS: BP 139/91
--- NOTE | 2017-11-10 12:40 | NUR ---
USED SPICE LAST MIDNITE.WEAK.HX:GALLSTONE,HEPATITIS. DENIES MEDS. SKIN IS PINK/WARM/DRY; LUNGS CLEAR BL; HR EVEN AND REGULAR; PT DENIES ANY FEVER, CP, SOB, OR COUGH AT THIS TIME; PATIENT STATES PAIN OF 0/10 AT THIS TIME; BEDSIDE MONITOR SHOWS SB. PATIENT POSITIONED FOR COMFORT; HOB ELEVATED; BEDRAILS UP X2; BED DOWN. ER MD MADE AWARE OF PT STATUS.
--- NOTE | 2017-11-10 12:42 | NUR ---
PT TAKEN TO BED 1
--- NOTE | 2017-11-10 12:50 | NUR ---
DR. ALCOCER MADE AWARE OF HEART RHYTHM SB 47-50. EKG. PATIENT MONITORED
[2017-11-10] MEDS ORDERED: NACL 0.9% 1,000 ML IV SCH (13:16)
[2017-11-10] MEDS ORDERED: PROCHLORPERAZINE 10 MG/2 ML VIAL IVP ONE (13:20)
[2017-11-10 14:11] LABS: BASOPHILS # (AUTO) 0.3 K/uL (0.00-0.22); EOSINOPHILS # (AUTO) 0.1 K/uL (0-0.4); HEMATOCRIT 48.9 % (36-52); HEMOGLOBIN 15.9 g/dL (12.0-18.0); LYMPHOCYTES # (AUTO) 0.8 K/uL (2.0-11.5); MEAN CORPUSCULAR HEMOGLOBIN 30 pg (27-31); MEAN CORPUSCULAR HGB CONC 33 g/dL (33-37); MEAN CORPUSCULAR VOLUME 94 fL (80-94); MONOCYTES # (AUTO) 0.4 K/uL (0.8-1.0); NEUTROPHILS # (AUTO) 5.8 K/uL (1.8-7.7); PLATELET COUNT (AUTO) 305 K/uL (140-450); RED BLOOD CELL COUNT(AUTO) 5.24 MIL/uL (4.20-6.10); RED CELL DISTRIBUTION WIDTH 12.6 % (11.6-13.7); WHITE BLOOD COUNT (AUTO) 7.4 K/uL (4.8-10.8)
[2017-11-10 14:52] LABS: ANION GAP 13.6 (8-16); CARBON DIOXIDE 26.8 mmol/L (21-32); CREATININE 0.9 mg/dL (0.7-1.3); POTASSIUM 3.4 mmol/L (3.5-5.1)
[2017-11-10 14:53] LABS: ALBUMIN 3.7 g/dL (3.4-5.0); TOTAL BILIRUBIN 0.5 mg/dL (0.0-1.0)
--- NOTE | 2017-11-10 15:26 | NUR ---
[facility]- COUSIN [phone] REQUESTING TO BE CALLED IF PATIENT GETS RELEASED.
--- NOTE | 2017-11-10 16:00 | NUR ---
called pt's sister kali [phone], no answer, voice msg left.
--- NOTE | 2017-11-10 18:20 | NUR ---
PT'S SISTER AT BEDSIDE, HAVING CONVERSATION WITH MD.
--- NOTE | 2017-11-10 19:10 | NUR ---
report given to nai pereyra. pt vitals stable at this time.
[2017-11-10] MEDS ORDERED: DOCUSATE SODIUM 100 MG GELCAP PO PRN (19:35)
[2017-11-10] MEDS ORDERED: METOCLOPRAMIDE 10 MG/2 ML INJ VIAL IVP PRN (19:35)
[2017-11-10] MEDS ORDERED: MORPHINE SULFATE 2 MG/ML SYR IVP PRN (19:35)
[2017-11-10] MEDS ORDERED: ACETAMINOPHEN 325 MG TAB PO PRN (19:35)
[2017-11-10] MEDS ORDERED: HYDROcodone/APAP 7.5/325 MG 1 TAB PO PRN (19:35)
--- NOTE | 2017-11-10 20:05 | NUR ---
Report given and care accepted by Fantasma BESS. IV placed right hand on floor in room 104B. IV line patent.
--- NOTE | 2017-11-10 20:15 | NUR ---
RECEIVED PT FROM ED. BEDSIDE REPORT FROM MARIA ALEJANDRA FLOR. PT DOESN'T HAVE AN IV ACCESS. RN FROM ED SAID HE WILL INSERT IV.
[2017-11-10 20:30] VITALS: BP 157/77
--- NOTE | 2017-11-10 20:30 | NUR ---
Admitted from ED, with chief complaint of NAUSEA&VOMITING, WEAKNESS, HOMELESS, 47 y/o ,Male, Dependent. Pt has no communicative intent. Pt unable to give much information. Pt appears to have a short attention span at this time possibly due to his condition. Initial assessment done. Vital signs checked. Pt is fidgety in between assessment. Pt asking for water to drink and wants the overhead light turned off. Told him as soon as fiction and nonfiction writer prose is done w/ assessment, will turn it off. Pt oriented to call light, bed, phone,television, bathroom, smoking policy, procedures, ID bracelet on. Belongings list checked. MRSA swab collected. Instructed pt to use urinal when voiding since MD ordered to collected urine sample. Pt appears to understand. Urinal at bedside. Call light w/in reach. Safety reinforced. Will continue to monitor.
[2017-11-10 21:03] LABS: AMYLASE 93 U/L (25-115); CHOL/HDL RATIO 2.2 (1-4.5); HDL CHOLESTEROL 89 mg/dL (40-60); LDL (CALC) 100 mg/dL (60-100); MAGNESIUM 1.9 mg/dL (1.8-2.4); PHOSPHORUS 2.9 mg/dL (2.5-4.9); THYROID STIMULATING HORMONE 2.87 uIU/mL (0.34-3.74); TRIGLYCERIDES 43 mg/dL (30-150)
--- NOTE | 2017-11-10 22:00 | NUR ---
SEEN PT APPEARS ASLEEP BUT AROUSABLE. IVF OF NS @ 60ML/HR STARTED ORDERED. PT COOPERATIVE AT THIS TIME. DR CHANDRA AT BEDSIDE ASKING PT QUESTIONS. PT'S ANSWER ARE LIMITED. HE ASKED IF PT HAS URINE SAMPLE ALREADY. INFORMED MD THAT PT IS AWARE OF THE NEED FOR URINE SAMPLE.
[2017-11-10] MEDS: NACL 0.9% 1,000 ML IV SCH (22:11)
--- NOTE | 2017-11-10 22:30 | NUR ---
PT IS ON SEIZURE PRECAUTION. SAID TO GIVE PT ATIVAN 2MG IVP RIGHT NOW SINCE PT IS HAVING PSYCHOSIS. ALSO SAID TO BE CAREFUL WHEN GOING TO THE PT AND MAKE SURE TO BRING SOMEBODY WITH THE BUNCH BREAKER MACHINE OPERATOR. DR CHANDRA SAID HE WILL ORDER SEROQUEL FOR PT. INFORMED DR CHANDRA THAT PT'S K LEVEL IS 3.4. HE SAID HE'LL ORDER REPLACEMENT. CHARGE NURSE MADE AWARE THAT PT NEEDS TO BE MOVE TO A CLOSER ROOM.
[2017-11-10] MEDS ORDERED: LORazepam 2 MG/ML VIAL IVP PRN (22:35)
[2017-11-10] MEDS ORDERED: ALUMINUM HYD/MAG/SIMETHICONE 30 ML UDC PO PRN (22:50)
[2017-11-10] MEDS: POTASSIUM CHLORIDE 10 MEQ TABER PO SCH ×2 (22:55→23:26)
[2017-11-10] MEDS ORDERED: QUEtiapine FUMARATE 100 MG TAB PO SCH (23:00)
--- NOTE | 2017-11-10 23:00 | NUR ---
PT VOIDED AND WILL COLLECT URINE SAMPLE. PT MOVED TO RM 122A TO BE CLOSER TO THE NURSE'S STATION. INCREASED IVF TO 110ML/HR. PT GIVEN ATIVAN 2MG IVPX1 NOW, SEROQUEL 200MG POX1 AND KDUR 20MEQ POX1 ORDERED. TEACHINGS PROVIDED. PT TOLERATED MEDS WELL. SAFETY REINFORCED. BED ALARM TURNED ON. WILL CONTINUE TO MONITOR.
[2017-11-10] MEDS: QUEtiapine FUMARATE 100 MG TAB PO SCH ×2 (23:14→23:39)
[2017-11-10] MEDS: LORazepam 2 MG/ML VIAL IVP PRN (23:16)
[2017-11-10] MEDS ORDERED: POTASSIUM CHLORIDE 10 MEQ TABER PO SCH (23:20)
[2017-11-10 23:38] LABS: APPEARANCE,URINE CLEAR (CLEAR); BILIRUBIN,URINE NEGATIVE (NEGATIVE); BLOOD, URINE NEGATIVE (NEGATIVE); COLOR,URINE YELLOW (YELLOW); LEUKOCYTE ESTERASE ,URINE NEGATIVE (NEGATIVE); NITRITE, URINE NEGATIVE (NEGATIVE); UGLUCOSE NEGATIVE (NEGATIVE)
[2017-11-10 23:45] LABS: BARBITURATE, URINE NEG. ng/ml (NEG <=200); BENZODIAZEPINE, URINE NEG. ng/mL (NEG <=200); CANNABINOID, URINE NEG. ng/mL (NEG <=50); COCAINE, URINE NEG. ng/mL (NEG <=300); OPIATE, URINE NEG. ng/mL (NEG <=2000); PHENCYCLIDINE SCREEN,URINE NEG. ng/mL (NEG <=25)
[2017-11-10 23:59] LABS: RBC,URINE 0-5 (RARE) /HPF (0-5); WBC,URINE 0-5 (RARE) /HPF (0-5)
[2017-11-11] VITALS (8 sets, daily range): BP systolic 119–155; BP diastolic 75–99
[2017-11-11] MEDS ORDERED: HALOPERIDOL IM 5 MG/ML VIAL ONE (03:13)
[2017-11-11] MEDS ORDERED: LORazepam 2 MG/ML VIAL IM/IVP PRN (03:15)
[2017-11-11] MEDS ORDERED: HALOPERIDOL IM 5 MG/ML VIAL IM SCH (03:15)
--- NOTE | 2017-11-11 03:16 | NUR ---
CAME BACK FROM BREAK AND HEARD PT SCREAMING AND YELLING AND STAFF INCLUDING SECURITY HOLDING DOWN PT. PT WAS PLACED ON RESTRAINT TEMPORARILY W/ MD AT BEDSIDE. PER COVER NURSE, PT'S BED ALARMED AND SHE SAW PT URINATING ON THE FLOOR, IV OUT AND PT TALKING TO HIMSELF. PT CAN'T BE STOP SO SABRINA AZEVEDO WAS CALLED.
[2017-11-11] MEDS ORDERED: diphenhydrAMINE 50 MG/ML VIAL IM ONE (03:25)
[2017-11-11] MEDS: LORazepam 2 MG/ML VIAL IVP PRN (03:26)
--- NOTE | 2017-11-11 03:40 | NUR ---
DAVID FROM ER TRYING TO PUT IV ON PT BUT UNSUCCESSFUL. PT FIGHTING AND SCREAMING, VERY AGGRESSIVE W/ THE STAFF. ANOTHER NURSE TRIED TO INSERT IV BUT UNSUCCESSFUL TOO. DAVID RN WAS ABLE TO INSERT ON RT FA G20 AND WAS ABLE TO GIVE ATIVAN 2MG IVP ORDERED. AFTER A WHILE PT'S IV BLEW UP AND SEVERAL ATTEMPTS WERE MADE BUT UNABLE TO PLACE NEW ONE. PT SLIGHTLY CALMED DOWN BUT FIGHTS IN BETWEEN WHEN POKED W/ NEEDLE. PT STILL ON 4PT RESTRAINTS FOR NOW. MD EVALUATING PT AND DECIDED THAT PT WILL GO TO ICU FOR CLOSE MONITORING.
--- NOTE | 2017-11-11 04:00 | NUR ---
NEW IV IN PLACED ON RT FA G22 SALINE LOCK FOR NOW AFTER SEVERAL ATTEMPTS BY 2 ER NURSE.
--- NOTE | 2017-11-11 04:20 | NUR ---
PT ASLEEP RIGHT NOW BUT MOVES AROUND WHEN TOUCH W/ COLD OBJECT. PT PREPPING TO BE TRANSFERRED TO ICU.
--- NOTE | 2017-11-11 04:30 | NUR ---
PT ASLEEP AND TRANSFERRED VIA BED TO ICU BED 2. PT ABLE TO TRANSFER BY HIMSELF FROM MST BED TO ICU BED. REPORT GIVEN BEDSIDE TO ICU NURSE.
--- NOTE | 2017-11-11 04:45 | NUR ---
PT TRANSFERRED TO ICU-[address] [facility] [facility], RECEIVED REPORT FROM DOMINGO. BESS. PT IS IN ASLEEP, AROUSABLE TO VOICE, VERBALLY RESPONSIVE, NOT COOPERATIVE AT THIS TIME. ON ROOM AIR O2 SAT 97%, NO ACUTE RESPIRATORY DISTRESS NOTED. DENIES PAIN AT THIS TIME. PERIPHERAL LINE TO RIGHT WRIST 20G WITH NS 110ML/HR. HOB ELEVATED, BED IN LOW POSITION, SEIZURE PRECAUTION IN PLACE, BILATERAL PADDED SIDE RAILS UP, CALL LIGHT WITHIN REACH. WILL CONTINUE TO MONITOR.
[2017-11-11] MEDS: NACL 0.9% 1,000 ML IV SCH ×2 (06:10→13:57)
--- NOTE | 2017-11-11 06:30 | NUR ---
PT IS IN ASLEEP, AROUSABLE TO VOICE, GETTING ANXIOUS IF WAKE PT UP. NO ACUTE DISTRESS NOTED. SR ON THE MONITOR. WILL CONTINUE TO MONITOR.
--- NOTE | 2017-11-11 07:25 | NUR ---
REPORT GIVEN TO TRAMAINE.
[2017-11-11 07:27] LABS: BASOPHILS # (AUTO) 0.5 K/uL (0.00-0.22); BASOPHILS % (AUTO) 4.9 % (0.0-2.0); EOSINOPHILS # (AUTO) 0.1 K/uL (0-0.4); EOSINOPHILS % (AUTO) 0.8 % (0.0-4.0); HEMATOCRIT 47.4 % (36-52); HEMOGLOBIN 15.4 g/dL (12.0-18.0); LYMPHOCYTES # (AUTO) 0.9 K/uL (2.0-11.5); MEAN CORPUSCULAR HEMOGLOBIN 31 pg (27-31); MEAN CORPUSCULAR HGB CONC 32 g/dL (33-37); MEAN CORPUSCULAR VOLUME 95 fL (80-94); MONOCYTES # (AUTO) 0.6 K/uL (0.8-1.0); MONOCYTES % (AUTO) 5.4 % (1.7-9.3); NEUTROPHILS # (AUTO) 8.9 K/uL (1.8-7.7); NEUTROPHILS % (AUTO) 80.9 % (42.2-75.2); PLATELET COUNT (AUTO) 289 K/uL (140-450); RED BLOOD CELL COUNT(AUTO) 4.99 MIL/uL (4.20-6.10); RED CELL DISTRIBUTION WIDTH 12.6 % (11.6-13.7)
--- NOTE | 2017-11-11 07:30 | NUR ---
RECEIVED REPORT FROM DANCE CHOREOGRAPHER NURSE AT BEDSIDE, PT IS AAOX2, DROWSY, FOLLOW COMMANDS, NO S/S OF DISTRESS, CLEAR LUNG SOUNDS, ON RA, SR ON AIRPORT MANAGER, SOFT ABDOMEN WITH ACTIVE BOWEL SOUNDS, CONTINENT WITH B&B'S, SKIN IS INTACT, WARM AND DRY TO TOUCH, IV SITE TO RIGHT FOREARM 22GA, RUNNING NS AT 110ML/HR. ABLE TO MOVE ALL EXTREMITIES, GENERALIZED WEAKNESS NOTED. SAFETY MEASURE AND SEIZURE PRECAUTION IN PLACE, HOB ELEVATED 30 DEGREES, CALL LIGHT WITHIN REACH, WILL CONTINUE TO MONITOR.
[2017-11-11 08:59] LABS: ANION GAP 12.9 (8-16); CARBON DIOXIDE 23.1 mmol/L (21-32); CREATININE 0.8 mg/dL (0.7-1.3)
[2017-11-11] MEDS: OXcarbazepine 150 MG TAB PO SCH ×3 (09:00→20:38)
[2017-11-11] MEDS ORDERED: risperiDONE 1 MG TAB PO SCH ×2 (09:00)
--- NOTE | 2017-11-11 09:00 | NUR ---
PT IS REFUSED MEDICATION AND BREAKFAST, STILL DROWSY AT THIS TIME.
[2017-11-11] MEDS: risperiDONE 1 MG TAB PO SCH (09:13)
[2017-11-11] MEDS: POTASSIUM CHLORIDE 10 MEQ TABER PO SCH (09:32)
--- NOTE | 2017-11-11 09:45 | NUR ---
PT IS TRANSFERRED TO CT VIA BED WITH RN AND JET BLADE POLISHER.
--- NOTE | 2017-11-11 11:27 | NUR ---
PATIENT HAS BEEN SCREENED AND CATEGORIZED MODERATE NUTRITION RISK. PATIENT WILL BE SEEN WITHIN 3-5 DAYS OF ADMISSION. 11/13/17 - 11/15/[address]
--- NOTE | 2017-11-11 11:33 | NUR ---
CALLED [facility]. THE CM IS ISABELA . FAXED INITIAL REVIEW TO [phone] PHONE ISABELA [phone].
--- NOTE | 2017-11-11 12:00 | NUR ---
PT IS STILL SLEEPING, OFFERED LUNCH, PT REFUSED.
--- NOTE | 2017-11-11 13:20 | NUR ---
PT TRANSFERRED TO ROOM 122A VIA BED, REPORT GIVEN TO JOSE RN AT BEDSIDE, PT IS IN STABLE CONDITION AT THIS TIME. VSS.
--- NOTE | 2017-11-11 13:21 | NUR ---
RECEIVED REPORT FROM BALANCING MACHINE SET UP WORKER, DAVIE, AT BEDSIDE FOR CONTINUITY OF CARE. PATIENT ASLEEP, IV TO R FA 22G. LUNG SOUNDS CLEAR, BOWEL SOUNDS ACTIVE. VITAL SIGNS WITHIN NORMAL LIMITS. SAFETY AND SEIZURE PRECAUTION IN PLACE, CALL LIGHT WITHIN REACH, WILL CONTINUE TO MONITOR PATIENT.
[2017-11-11] MEDS ORDERED: PROBIOTIC SCREEN 1 EA MISC MC PRN (14:20)
--- NOTE | 2017-11-11 15:45 | NUR ---
R FA IV INFILTRATED, NEW IV TO L WRIST 22G AFTER 2 ATTEMPTS. IV PATENT, ASYMPTOMATIC, AND INTACT, SALINE LOCKED. PATIENT TOLERATED IT WELL. PATIENT RESTING IN BED, NO SIGNS OF DISTRESS OR SOB NOTED, PATIENT DENIES PAIN. SAFETY AND SEIZURE PRECAUTION IN PLACE, CALL LIGHT WITHIN REACH, WILL CONTINUE TO MONITOR PATIENT.
--- NOTE | 2017-11-11 17:15 | NUR ---
DR. FAULKNER IN TO ASSESS THE PATIENT. WILL AWAIT HER UPDATED ORDERS. PATIENT RESTING IN BED, NO SIGNS OF DISTRESS OR SOB NOTED. CALL LIGHT WITHIN REACH, WILL CONTINUE TO MONITOR PATIENT.
--- NOTE | 2017-11-11 19:05 | NUR ---
REPORT GIVEN TO SECURITIES SETTLEMENT PROCESSOR NURSE AT BEDSIDE FOR CONTINUITY OF CARE. PATIENT IN STABLE CONDITION.
--- NOTE | 2017-11-11 19:20 | NUR ---
RECEIVED PT IN STABLE CONDITION FROM AM NURSE. ASLEEP BUT EASILY AROUSE WHEN NAME CALLED. ON TELE MONITOR-SR. NO DISCOMFORT NOTED. WITH IVF INFUSING WELL ON THE RT HAND#22. SIDE RAILS PADDED FRO SEIZURE PRECAUTIONS. BED ON LOWEST POSITION, CALL LIGHT PLACED WITHIN EASY REACH. WILL CONTINUE TO MONITOR.
[2017-11-11] MEDS: QUEtiapine FUMARATE 100 MG TAB PO SCH (20:37)
--- NOTE | 2017-11-11 20:38 | NUR ---
PT ABLE TO TAKE SCHEDULED MEDS. WILL CONTINUE TO MONITOR.
--- NOTE | 2017-11-11 22:40 | NUR ---
PT PULLED OUT IV ACCESS RT HAND . STARTED A NEW IV ACCESS ON THE LT FA #[id number]. CLEAR AND PATENT.
[2017-11-12] MEDS: NACL 0.9% 1,000 ML IV SCH ×2 (00:22→05:23)
[2017-11-12 00:30] VITALS: BP 134/98
--- NOTE | 2017-11-12 02:00 | NUR ---
PT IS ASLEEP. NO S/S OF ANY DISCOMFORT NOTED. WILL CONTINUE TO MONITOR.
--- NOTE | 2017-11-12 03:00 | NUR ---
M,SATHYA ROUNDS. PT IS SLEEPING. NO S/S OF ANY DISTRESS NOR DISCOMFORT NOTED.
[2017-11-12 04:15] VITALS: BP 134/77
[2017-11-12 06:24] LABS: T4 (THYROXINE) 8.3 ug/dL (4.5-12.0)
--- NOTE | 2017-11-12 07:20 | NUR ---
ENDORSED PT IN STABLE CONDITION TO AM NURSE.
--- NOTE | 2017-11-12 07:21 | NUR ---
RECEIVED REPORT FROM HOT STRIP FINISHER NURSE. PATIENT LYING DOWN IN BED SLEEPING, AROUSABLE BY VOICE. NO DISTRESS NOTED. DENIES ANY PAIN AT THIS TIME. RESPIRATIONS EVEN, UNLABORED, ON ROOM AIR. AAOX3, CALM, COOPERATIVE, SKIN COLOR APPROPRIATE TO ETHNICITY, WARM TO TOUCH. SKIN IS INTACT. LUNGS CTA ON ALL LOBES. ABDOMEN SOFT, NON-DISTENDED. IV SITE INTACT, PATENT, AND INFUSING IVF PER MD ORDERS. REVIEWED PLAN OF CARE WITH PATIENT. PATIENT VERBALIZED UNDERSTANDING. SAFETY MEASURES IN PLACE, CALL LIGHT WITHIN REACH. WILL CONTINUE TO MONITOR.
[2017-11-12 08:00] VITALS: BP 131/75
[2017-11-12] MEDS: risperiDONE 1 MG TAB PO SCH (10:16)
--- NOTE | 2017-11-12 10:17 | NUR ---
PATIENT LYING DOWN IN BED SLEEPING, AROUSABLE BY VOICE. NO DISTRESS NOTED. DENIES ANY PAIN. SCHEDULED MEDICATIONS DUE GIVEN. SAFETY MEASURES IN PLACE, CALL LIGHT WITHIN REACH. WILL CONTINUE TO MONITOR.
--- NOTE | 2017-11-12 10:45 | NUR ---
PHYSICAL THERAPIST AT BEDSIDE WORKING WITH PATIENT. WILL CONTINUE TO MONITOR.
[2017-11-12] MEDS: OXcarbazepine 150 MG TAB PO SCH (11:15)
[2017-11-12] MEDS: POTASSIUM CHLORIDE 10 MEQ TABER PO SCH (11:15)
--- NOTE | 2017-11-12 11:20 | NUR ---
PATIENT BACK TO BED FROM WORKING WITH PHYSICAL THERAPIST. PATIENT ABLE TO WALK AROUND [facility] WITH A WALKER. IVF RECONNECTED TO PATIENT. SCHEDULED MEDICATIONS DUE GIVEN. SAFETY MEASURES IN PLACE, CALL LIGHT WITHIN REACH. WILL CONTINUE TO MONITOR.
--- NOTE | 2017-11-12 12:03 | NUR ---
CM NOTE FAXED CONCURRENT REVIEW TO [phone] PHONE ISABELA [phone].
--- NOTE | 2017-11-12 12:30 | NUR ---
PATIENT LYING IN BED SLEEPING, AROUSABLE BY VOICE. NO DISTRESS NOTED. DENIES ANY PAIN. NOTIFIED PATIENT THAT HE WILL BE DISCHARGED LATER TODAY AND THAT WE ARE WAITING FOR A FWW FOR HIM BEFORE BEING DISCHARGED. PATIENT VERBALIZED UNDERSTANDING. SAFETY MEASURES IN PLACE, CALL LIGHT WITHIN REACH. WILL CONTINUE TO MONITOR.
--- NOTE | 2017-11-12 13:41 | NUR ---
GRACIE NOTE RECEIVED ORDER FOR FWW TO [facility] [phone], ATTN: ISABELA Cervantes PH# [phone]. LEFT VM TO [facility] CM ISABELA Cervantes PH# [phone] REGARDING ORDER FOR FWW. Addendum: 11/12/17 at 1347 by Sheila Diaz CM FAXED ORDER FOR FWW AND PT NOTES TO [facility] [phone], ATTN: ISABELA Cervantes PH# [phone].
--- NOTE | 2017-11-12 14:14 | NUR ---
CM NOTE PER [facility] ISABELA Cervantes PH# [phone], SEND ORDER TO [facility] PH# [phone] AND SHE ALSO STATED THAT ANY DME LESS THAN $500 DOES NOT REQUIRE AUTHORIZATION. PER [facility] PH# [phone] SEND FACESHEET, ORDER AND PT EVAL TO FAX# [phone]. I INFORMED JACKLYN THAT PATIENT WILL BE DISCHARGED TODAY AND THAT FWW IS TO BE DELIVERED BEDSIDE TODAY. FAXED FACEHEET, ORDER[phone] PH# [phone].
--- NOTE | 2017-11-12 14:30 | NUR ---
PATIENT SITTING IN BED COMFORTABLY. NO DISTRESS NOTED. DISCHARGE INSTRUCTIONS PROVIDED TO PATIENT IN PREFERRED LANGUAGE OF [place]. FOLLOW-UP VISIT WITH DR. [facility] PROVIDED, NEW/CHANGED MEDICATION REGIMEN INSTRUCTIONS, AND PROVIDED HOMELESS RESOURCE PACKET TO PATIENT. ANSWERED ALL OF PATIENT'S QUESTIONS. PATIENT VERBALIZED UNDERSTANDING. ALL BELONGINGS WITH PATIENT. IV SITE REMOVED WITH MINIMAL BLOOD AND LUMEN COMPLETELY INTACT. ID BANDS REMOVED. CALLED CUTTING MACHINE OFFBEARER TO REQUEST FOR BUS PASS. AWAITING FOR PATIENT TO GET DRESSED AND FOR BUS PASS. PATIENT'S FWW AT BEDSIDE AND WILL LEAVE WITH IT UPON D/C. WILL CONTINUE TO MONITOR.
--- NOTE | 2017-11-12 14:55 | NUR ---
PATIENT ALL DRESSED UP. BUS PASS WITH PATIENT. ALL BELONGINGS WITH PATIENT. ESCORTED PATIENT DOWN TO LOBBY VIA FWW. PATIENT REFUSED WHEELCHAIR. PATIENT DISCHARGED AT THIS TIME TO PUBLIC TRANSPORT IN STABLE CONDITION.
--- NOTE | 2017-11-12 15:38 | NUR ---
CM NOTE [facility] PROVIDED PT WITH FWW. SPOKE WITH JOCELYNE PH# [phone] TO CANCEL ORDER FOR FWW. FAXED NOTE TO CANCEL ORDER FOR FWW TO [facility] FAX# [phone] PH# [phone].
== END 2017-11-12 14:55 | disposition home or self-care (01) | DRG 812 ==
LOC: MED 12:28 → MTU 19:40 → MIC 11-11 04:30 → MTU 11-11 13:20
PROVIDERS: ADMIT Family Medicine Sports Medicine; ATTEND Family Medicine Sports Medicine
DX: T43.621A Poisoning by amphetamines, accidental (unintentional), initial encounter (principal); G92 Toxic encephalopathy; E87.1 Hypo-osmolality and hyponatremia; F31.12 Bipolar disorder, current episode manic without psychotic features, moderate; F15.23 Other stimulant dependence with withdrawal; E87.6 Hypokalemia; K80.20 Calculus of gallbladder without cholecystitis without obstruction; K75.9 Inflammatory liver disease, unspecified; F17.210 Nicotine dependence, cigarettes, uncomplicated; F12.10 Cannabis abuse, uncomplicated; R00.1 Bradycardia, unspecified; Y92.89 Other specified places as the place of occurrence of the external cause; Z59.0 Homelessness
CPT/HCPCS: 36415; 70450; 71045; 80048; 80053; 80305; 81001; 82150; 82948; 83036; 83690; 83735; 84100; 84436; 84443; 84479; 84484; 85025; 85610; 85730; 87081; 93005; 96361; 96374; 97140; 99285; G0482; J0780; J1630; J2060; J2765; J7030; Q0092

== ENCOUNTER 2019-05-21 05:45 | Inpatient (IN) | payer MEDICAID ==
[~2019-05-21] VITALS: Ht 180.3 cm; Wt 67.6 kg
[2019-05-21 05:45] VITALS: BP 159/88
--- NOTE | 2019-05-21 05:50 | NUR ---
48 Y/O M BIBA WITH C/O CHEST AND ABDOMINAL PAIN. AAOX4. CHEST PAIN MORE PAINFUL THAN ABDOMINAL PAIN PER PT. PT STATED "I'VE HAD THIS CHEST PAIN FOR YEARS." 06/10 PRESSURE-LIKE PAIN LOCATED AT THE STERNUM, NON- RADIATING. PT BRADYCARDIC, HR 48. NO JVD PRESENT. CAP REFILL IMMEDIATE. NO EDEMA PRESENT. +N/V. BOWEL SOUNDS PRESENT X4 QUADRANTS. PT ADMITTED TO SMOKE METH, MARIJUANA, AND SPICE X1 DAY AGO. BEDRAIL X2 UP. BED IN LOCKED POSTION. WILL CONTINUE TO MONITOR.
--- NOTE | 2019-05-21 05:50 | NUR ---
EKG PERFORMED AT BEDSIDE
[2019-05-21] MEDS ORDERED: NACL 0.9% 1,000 ML IV ONE ×2 (06:09→10:15)
--- NOTE | 2019-05-21 06:30 | NUR ---
PT UNABLE TO PROVIDE URINE SPECIMEN AT THIS TIME. XIAOD MADE AWARE. PT GIVEN ICE CHIPS. WILL CONTINUE TO MONITOR.
[2019-05-21 06:35] LABS: BASOPHILS % (AUTO) 0.5 % (0.0-2.0); EOSINOPHILS # (AUTO) 0.1 K/uL (0-0.4); EOSINOPHILS % (AUTO) 1.2 % (0.0-4.0); HEMATOCRIT 48.4 % (36-52); HEMOGLOBIN 16.2 g/dL (12.0-18.0); LYMPHOCYTES # (AUTO) 0.7 K/uL (2.0-11.5); LYMPHOCYTES % (AUTO) 7.7 % (20.5-51.1); MEAN CORPUSCULAR HEMOGLOBIN 32 pg (27-31); MEAN CORPUSCULAR HGB CONC 34 g/dL (33-37); MEAN CORPUSCULAR VOLUME 96.3 fL (80-94); MONOCYTES # (AUTO) 0.6 K/uL (0.8-1.0); MONOCYTES % (AUTO) 7.6 % (1.7-9.3); NEUTROPHILS # (AUTO) 7.1 K/uL (1.8-7.7); PLATELET COUNT (AUTO) 254 K/uL (140-450); RED BLOOD CELL COUNT(AUTO) 5.02 MIL/uL (4.20-6.10); WHITE BLOOD COUNT (AUTO) 8.5 K/uL (4.8-10.8)
[2019-05-21 06:38] LABS: MAGNESIUM 1.7 mg/dL (1.8-2.4)
[2019-05-21 06:43] LABS: ALBUMIN 3.9 g/dL (3.4-5.0); ANION GAP 12.6 (8-16); CARBON DIOXIDE 30.5 mmol/L (21-32); CREATININE 0.9 mg/dL (0.7-1.3); POTASSIUM 3.1 mmol/L (3.5-5.1); TOTAL BILIRUBIN 0.6 mg/dL (0.0-1.0)
--- NOTE | 2019-05-21 07:05 | NUR ---
REPORT GIVEN TO MARIA ALEJANDRA BA. TRANSFER OF CARE AT THIS TIME.
--- NOTE | 2019-05-21 07:09 | NUR ---
LAB AT BEDSIDE
--- NOTE | 2019-05-21 08:01 | NUR ---
PT STATES HE IS UNABLE TO PRODUCE URINE AT THIS TIME.
--- NOTE | 2019-05-21 08:02 | NUR ---
PT IN BED, C/O CP AT 04/10, WITH NAUSEA. PT HAD 1 EPISODE OF CLEAR EMESIS AT THIS TIME, ER MD MADE AWARE. VSS.
[2019-05-21] MEDS ORDERED: ONDANSETRON 4 MG/2 ML VIAL ONE (08:10)
[2019-05-21] MEDS ORDERED: ONDANSETRON 4 MG/2 ML VIAL IVP ONE (08:10)
[2019-05-21] MEDS ORDERED: POTASSIUM CHLORIDE 10 MEQ TABER PO ONE (08:15)
[2019-05-21] MEDS ORDERED: MAGNESIUM OXIDE 400 MG TAB PO ONE (08:15)
[2019-05-21] MEDS ORDERED: MORPHINE SULFATE 4 MG/ML SYR IVP ONE (08:20)
--- NOTE | 2019-05-21 09:00 | NUR ---
# 14 FR Urinary catheter inserted utilizing sterile technique. Immediate return of 100 ml CLEAR urine noted. Urine sample collected and WALKED to lab. Pt tolerated procedure WELL.
[2019-05-21 09:14] LABS: APPEARANCE,URINE CLEAR (CLEAR); BILIRUBIN,URINE NEGATIVE (NEGATIVE); BLOOD, URINE NEGATIVE (NEGATIVE); COLOR,URINE YELLOW (YELLOW); LEUKOCYTE ESTERASE ,URINE NEGATIVE (NEGATIVE); NITRITE, URINE NEGATIVE (NEGATIVE); PH,URINE >=9.0 (5.0-9.0); UGLUCOSE NEGATIVE (NEGATIVE)
[2019-05-21 09:37] LABS: WBC,URINE 0-5 /HPF (0-5)
[2019-05-21 09:40] LABS: BARBITURATE, URINE NEG. ng/ml (NEG <=200); BENZODIAZEPINE, URINE NEG. ng/mL (NEG <=200); CANNABINOID, URINE NEG. ng/mL (NEG <=50); COCAINE, URINE NEG. ng/mL (NEG <=300); OPIATE, URINE NEG. ng/mL (NEG <=2000); PHENCYCLIDINE SCREEN,URINE NEG. ng/mL (NEG <=25)
--- NOTE | 2019-05-21 10:26 | NUR ---
PT RESTING IN BED, AROUSABLE TO NAME, VSS, PT DENEIS NAUSEA AT THIS TIME, CP AT 7/10. DENEIS SOB, CAP REFIL <3 SEC, NO EDEMA, HEART RRR, NO EDEMA PRESENT.
--- NOTE | 2019-05-21 11:35 | NUR ---
PER SANDY REAVES PROVIDED PT WITH APPLE JUICE FOR PO CHALLENGE AT THIS TIME
--- NOTE | 2019-05-21 11:45 | NUR ---
PT DRANK APPLE JUICE, TOLERATED WELL. PER ER MD PT SHOULD DRINK 3 APPLE JUICES WITHIN THE HOUR, IF PT TOLERATED WELL MAYBE DISCHARGED, WHILE EXPLAINING PO CHALLENGE TO PT, PT SPIT CLEAR LIQUID ON FLOOR, REPORTS THAT CP CAME BACK, STATES THAT PAIN ALWAYS COMES BACK AFTER EATING OR DRINKING.
--- NOTE | 2019-05-21 13:13 | NUR ---
PT SLEEPING IN BED, AROUSABLE TO NAME, PT GIVEN ICE CHIPS A THIS TIME, REPORTS CP AT 7/10 AT THIS TIME.
[2019-05-21] MEDS ORDERED: ACETAMINOPHEN 325 MG TAB PO PRN (14:00)
[2019-05-21] MEDS ORDERED: ONDANSETRON 4 MG/2 ML VIAL IVP PRN (14:00)
[2019-05-21 14:30] VITALS: BP 115/73
--- NOTE | 2019-05-21 14:30 | NUR ---
PATIENT ARRIVED UNIT VIA GURNEY ACCOMPANIED ER NURSE AROLDO. PATIENT AWAKE AND ALERT AND ORIENTED X4. RESPIRATION EVEN AND UNLABORED ON RA. DENIED PAIN AND SOB AT THIS TIME. NO SIGNS OF DISTRESS NOTED. IV ON R WRIST 22, CLEAN AND INTACT, NOT INFUSING AT THIS TIME. PATIENT IS CONTINENT AND ABLE TO AMBULATE. ORIENTED PATIENT TO THE ROOM, DEMONSTRATED TO PATIENT ON HOW TO USE THE CALL LIGHT, BED REMOTE, LIGHTS, TELEPHONE, TV, AND BATHROOM. PATIENT VERBALIZED UNDERSTANDING. APPLIED TELE MONITOR ON PATIENT. VITAL SIGNS TAKEN AND MRSA NARES COLLECTED. NPO INITIALED AND SIGN POSTED. SAFETY MEASURES IN PLACE. BED IN LOW POSITION AND CALL LIGHT WITHIN REACH. INSTRUCTED PATIENT TO USE THE CALL LIGHT FOR ANY ASSISTANCE AND PATIENT SAID OK.
--- NOTE | 2019-05-21 14:35 | NUR ---
Patient will be admitted to care of [facility]. Admited to TELE VIA GURORESTES W/ VSS. Will go to room 126B. Belongings list completed. Report to JOSE CHARGE NURSE.
[2019-05-21] MEDS: NACL 0.9% 1,000 ML IV SCH ×2 (14:50→23:44)
--- NOTE | 2019-05-21 15:14 | NUR ---
PATIENT THREW UP SOME CLEAR SALIVA AND COMPLAINED THAT HE FEELS NAUSEA, ADMINISTERED PRN ZOFRAN VIA IVP PER MD ORDER, MED EDUCATION PROVIDED TO PATIENT AND PATIENT SAID "OK." PATIENT REFUSED TO CHANGE INTO HOSPITAL GOWN, EDUCATED PATIENT ON CHANGE INTO HOSPITAL GOWN AND PERSONAL HYGIENE, PATIENT INSISTED NOT WANTING TO CHANGE. PATIENT IS RESTING ON BED AT THIS TIME. NO SIGNS OF DISTRESS NOTED. TELE MONITOR ATTACHED. SAFETY MEASURES IN PLACE. BED IN LOW POSITION AND CALL LIGHT WITHIN REACH. INSTRUCTED PATIENT TO USE THE CALL LIGHT FOR ANY ASSISTANCE AND PATIENT SAID OK.
[2019-05-21] MEDS ORDERED: METOCLOPRAMIDE 10 MG/2 ML INJ VIAL IVP PRN (15:15)
--- NOTE | 2019-05-21 15:20 | NUR ---
DR POLANCO IS TALKING AND ASSESSING PATIENT AT BEDSIDE. PER DR POLANCO, INCREASE IVF FROM 50 ML/HR TO 125 ML/HR. NO SIGNS OF DISTRESS NOTED. SAFETY MEASURES IN PLACE. BED IN LOW POSITION AND CALL LIGHT WITHIN REACH. TELE MONITOR ATTACHED
--- NOTE | 2019-05-21 15:50 | NUR ---
PATIENT REFUSED TO SIGN THE BELONGING LIST. EXPLAINED TO PATIENT ABOUT THE BELONGING LIST AND IT'S THE INVENTORY FOR ADMISSION. PATIENT IGNORED AND DID NOT ANSWER. PATIENT CLOSED HIS EYES AND DID NOT REPLY. TELE MONITOR ATTACHED. SAFETY MEASURES IN PLACE. BED IN LOW POSITION AND CALL LIGHT WITHIN REACH.
[2019-05-21 16:00] VITALS: BP 110/63
[2019-05-21] MEDS ORDERED: DICYCLOMINE HCL LIQUID 20 MG, ALUMINUM HYD/MAG/SIMETHICONE 30 ML, LIDOCAINE VISCOUS 2% ... PO SCH ×3 (17:00)
--- NOTE | 2019-05-21 17:33 | NUR ---
ADMINISTERED MED PER MD ORDER, PATIENT TOLERATED WELL. MED EDUCATION PROVIDED TO PATIENT AND PATIENT SAID " OK I WILL TRY TO SEE IF IT HELPS." PATIENT IS RESTING ON BED AT THIS TIME. TELE MONITOR ATTACHED. SAFETY MEASURES IN PLACE. BED IN LOW POSITION AND CALL LIGHT WITHIN REACH. INSTRUCTED PATIENT TO USE THE CALL LIGHT FOR ANY ASSISTANCE AND PATIENT SAID " I WILL."
[2019-05-21 17:42] LABS: PROTHROMBIN TIME 10.4 secs (10.8-13.4)
[2019-05-21] MEDS: HYDROcodone/APAP 7.5/325 MG 1 TAB PO PRN ×2 (18:22→22:38)
--- NOTE | 2019-05-21 18:22 | NUR ---
PATIENT COMPLAINED HE HAS 6/10 CHEST PAIN AND HE FEELS IRRITABLE AND RESTLESS. PATIENT IS RUBBING HIS CHEST. VITAL SIGNS TAKEN TEMP 98.1, BP 112/69, PULSE 56, RR 18, SPO2 99% ON RA. ADMINISTERED PRN PAIN MED WITH SIP OF WATER, MED EDUCATION PROVIDED TO PATIENT AND PATIENT VERBALIZED UNDERSTANDING. PATIENT REFUSED TO CHANGE INTO HOSPITAL GOWN AND SOCKS, EDUCATION PROVIDED TO PATIENT AND PATIENT INSISTED OF NOT WANTING TO CHANGE. PATIENT IS LAYING SUPINE ON BED. RESPIRATION EVEN AND UNLABORED ON RA. TELE MONITOR ATTACHED. SAFETY MEASURES IN PLACE. BED IN LOW POSITION AND CALL LIGHT WITHIN REACH. INSTRUCTED PATIENT TO USE THE CALL LIGHT FOR ANY ASSISTANCE AND PATIENT SAID OK.
[2019-05-21 18:34] LABS: FREE T4 (FREE THYROXINE) 1.11 ng/dL (0.76-1.46); MAGNESIUM 1.6 mg/dL (1.8-2.4)
[2019-05-21 18:35] LABS: THYROID STIMULATING HORMONE 3.15 uIU/mL (0.34-3.74)
--- NOTE | 2019-05-21 19:15 | NUR ---
ENDORSED PATIENT AT BEDSIDE TO CUSTODIAL LABORER NURSE FOR CONTINUITY OF CARE. PATIENT IS RESTING ON BED AT THIS TIME. AROUSABLE TO VOICE. EVEN AND UNLABORED CHEST RISES ON RA NOTED. NO SIGNS OF DISTRESS NOTED. PATIENT IS IN STABLE CONDITION. TELE MONITOR ATTACHED. SAFETY MEASURES IN PLACE. BED IN LOW POSITION AND CALL LIGHT WITHIN REACH.
--- NOTE | 2019-05-21 19:16 | NUR ---
RECEIVED BEDSIDE REPORT FROM DAY SHIFT NURSE. PT SLEEPING IN BED. NO S/S OF SOB NOTED ON ROOM AIR. IV ON R WRIST 22, INTACT, PATENT, AND ASYMPTOMATIC. PT IS AMBULATORY. SKIN INTACT, WARM AND DRY TO TOUCH. SAFETY MEASURES IN PLACE. BED IN LOW POSITION AND CALL LIGHT WITHIN REACH.
[2019-05-21 20:00] VITALS: BP 111/69
[2019-05-21] MEDS: DOCUSATE SODIUM 100 MG GELCAP PO SCH (20:04)
--- NOTE | 2019-05-21 20:08 | NUR ---
ADMINISTERED COLACE AND HEPARIN MD ORDERED. PT TOLERATED WELL.
--- NOTE | 2019-05-21 22:38 | NUR ---
PT C/O 6/ CHEST PAIN, GIVEN NORCO MD ORDERED. PT TOLERATED WELL. WILL CONTINUE TO MONITOR.
[2019-05-22] VITALS: BP 131/71
--- NOTE | 2019-05-22 | NUR ---
VS CHECKED, WITHIN PT'S BASELINE. WILL CONTINUE TO MONITOR.
--- NOTE | 2019-05-22 02:30 | NUR ---
PT SLEEPING. NO ACUTE DISTRESS NOTED.
[2019-05-22 04:00] VITALS: BP 109/67
--- NOTE | 2019-05-22 04:13 | NUR ---
PT SLEEPING IN BED. BREATHING EVEN AND UNLABORED ON ROOM AIR. WILL CONTINUE TO MONITOR.
[2019-05-22] MEDS: NACL 0.9% 1,000 ML IV SCH ×3 (04:37→15:33)
--- NOTE | 2019-05-22 06:46 | NUR ---
PT VOMITING. GIVEN REGLAN MD ORDERED. PT TOLERATED WELL.
--- NOTE | 2019-05-22 07:04 | NUR ---
RECEIVED BEDSIDE REPORT FROM PLUMBING DRAFTER NURSE FOR CONTINUITY OF CARE. PT SLEEPING IN BED. NO S/S OF SOB NOTED ON ROOM AIR. IV ON R WRIST 22, INTACT, PATENT, AND ASYMPTOMATIC, INFUSING IVF WELL. PT IS AMBULATORY. SKIN INTACT, WARM AND DRY TO TOUCH. UPDATED BOARD. SAFETY MEASURES IN PLACE. BED IN LOW POSITION AND CALL LIGHT WITHIN REACH. WILL CONTINUE TO MONITOR PATIENT.
[2019-05-22 08:00] VITALS: BP 119/67
[2019-05-22] MEDS: FAMOTIDINE 20 MG TAB PO SCH (08:40)
[2019-05-22] MEDS: DOCUSATE SODIUM 100 MG GELCAP PO SCH ×2 (08:41→20:51)
--- NOTE | 2019-05-22 08:44 | NUR ---
ORDERED MEDICATIONS GIVEN. PATIENT TOLERATED THEM WELL. NO COMPLAINTS AT THIS TIME. WILL CONTINUE TO MONITOR PATIENT.
[2019-05-22] MEDS ORDERED: POTASSIUM CHLORIDE 40 MEQ, LIDOCAINE MPF 1% - 5 mL VIAL 25 MG in NACL 0.9% 250 ML IV ONE (10:20)
[2019-05-22] MEDS ORDERED: MAGNESIUM OXIDE 400 MG TAB PO SCH (10:22)
--- NOTE | 2019-05-22 10:28 | NUR ---
ORDERED MEDICATIONS GIVEN. PATIENT TOLERATED THEM WELL. PATIENT AWARE OF NEW CLEAR LIQUID DIET ORDER FOR LUNCH. NO COMPLAINTS OF NAUSEA OR PAIN AT THIS TIME. WILL CONTINUE TO MONITOR PATIENT.
[2019-05-22 12:00] VITALS: BP 126/66
--- NOTE | 2019-05-22 12:21 | NUR ---
PATIENT SITTING ON SIDE OF BED EATING LUNCH. NO COMPLAINTS OF NAUSEA OR PAIN AT THIS TIME. SAFETY MEASURES IN PLACE. BED IN LOW POSITION AND CALL LIGHT WITHIN REACH. WILL CONTINUE TO MONITOR PATIENT.
[2019-05-22 15:44] VITALS: BP 123/85
--- NOTE | 2019-05-22 16:12 | NUR ---
PATIENT RESTING IN BED WATCHING TV, NO COMPLAINTS NAUSEA OR PAIN AT THIS TIME. ALL NEEDS METS. VS WNL. CALL LIGHT WITHIN REACH. WILL CONTINUE TO MONITOR PATIENT.
--- NOTE | 2019-05-22 18:08 | NUR ---
PATIENT RESTING IN BED WATCHING TV, NO COMPLAINTS NAUSEA OR PAIN AT THIS TIME. ALL NEEDS METS. CALL LIGHT WITHIN REACH. WILL CONTINUE TO MONITOR PATIENT AND ENDORSE TO SET ILLUSTRATOR NURSE.
--- NOTE | 2019-05-22 19:08 | NUR ---
REPORT GIVEN TO J2EE JAVA DEVELOPER NURSE AT BEDSIDE FOR CONTINUITY OF CARE. PATIENT WATCHING TV, IN STABLE CONDITION.
--- NOTE | 2019-05-22 19:09 | NUR ---
RECEIVED BEDSIDE REPORT FROM DAY SHIFT NURSEJOSE FOR CONTINUITY OF CARE. PT SLEEPING IN BED. NO S/S OF SOB NOTED ON ROOM AIR. IV ON R WRIST 22, INTACT, PATENT, AND ASYMPTOMATIC, INFUSING IVF WELL. PT IS AMBULATORY. SKIN INTACT, WARM AND DRY TO TOUCH. UPDATED BOARD. SAFETY MEASURES IN PLACE. BED IN LOW POSITION AND CALL LIGHT WITHIN REACH. WILL CONTINUE TO MONITOR PATIENT.
[2019-05-22 20:00] VITALS: BP 136/90
--- NOTE | 2019-05-22 20:54 | NUR ---
ADMINISTERED COLACE AND HEPARIN MD ORDERED. PT TOLERATED WELL.
[2019-05-23] VITALS: BP 140/87
--- NOTE | 2019-05-23 | NUR ---
VS CHECKED, WITHIN PT BASE LINE. WILL CONTINUE TO MONITOR.
--- NOTE | 2019-05-23 02:15 | NUR ---
PT SLEEPING IN BED. BREATHING EVEN AND UNLABORED. BED IN LOW POSITION, CALL LIGHT WITHIN REACH.
[2019-05-23 04:00] VITALS: BP 153/80
[2019-05-23] MEDS: NACL 0.9% 1,000 ML IV SCH ×2 (04:00→14:59)
--- NOTE | 2019-05-23 04:00 | NUR ---
IV SITE IS NOT WORKING, NOT FLUSHED. STARTED NEW IV LINE ON LFA, 24G. PATENT, INTACT, ASYMPTOMATIC.
--- NOTE | 2019-05-23 06:00 | NUR ---
NEW IV WAS PULLED OUT. PT STATE HE DID NOT PULL OUT. IT WAS PULLED OUT ACCIDENTLY. STARTED NEW IV, 24G LFA, PATENT, INTACT AND ASYMPTOMATIC.
--- NOTE | 2019-05-23 06:39 | NUR ---
PATIENT HAS BEEN SCREENED AND CATEGORIZED HIGH NUTRITION RISK. PATIENT WILL BE SEEN WITHIN 1-2 DAYS OF ADMISSION. 05/22/19-05/23/19 JUSTIN RICHARDSON MS, RDN
--- NOTE | 2019-05-23 06:53 | NUR ---
PT SLEEPING IN BED. NO ACUTE DISTRESS NOTED.
--- NOTE | 2019-05-23 07:00 | NUR ---
RECEIVED BEDSIDE REPORT FROM PATHOLOGY TECH NURSE FOR CONTINUITY OF CARE. PT AWAKE WATCHING TV. NO S/S OF SOB NOTED ON ROOM AIR. IV SITE INTACT, PATENT, AND ASYMPTOMATIC, INFUSING IVF WELL. PT IS AMBULATORY. SKIN INTACT, WARM AND DRY TO TOUCH. UPDATED BOARD. PATIENT DENIES PAIN OR NAUSEA AT THIS TIME. SAFETY MEASURES IN PLACE. BED IN LOW POSITION AND CALL LIGHT WITHIN REACH. WILL CONTINUE TO MONITOR PATIENT.
[2019-05-23 08:00] VITALS: BP 148/94
[2019-05-23] MEDS: FAMOTIDINE 20 MG TAB PO SCH (09:01)
[2019-05-23] MEDS: DOCUSATE SODIUM 100 MG GELCAP PO SCH (09:01)
--- NOTE | 2019-05-23 09:04 | NUR ---
ORDERED MEDICATIONS GIVEN. PATIENT TOLERATED THEM WELL. NO COMPLAINTS AT THIS TIME. DIET ADVANCED TO FULL LIQUID DIET, CALLED DIETARY FOR NEW TRAY FOR PATIENT. PATIENT AWARE. WILL CONTINUE TO MONITOR PATIENT.
--- NOTE | 2019-05-23 10:12 | NUR ---
RD RECOMMENDATIONS: 1. RECOMMEND CONTINUE ON FULL LIQUID DIET TOLERATED. 2. RECOMMEND ADVANCED TO REGULAR TOLERATED. 3. CONSULT RDN PRN. 4. RD WILL F/U 3-5 DAYS; MODERATE RISK. JUSTIN RICHARDSON MS, RDN
[2019-05-23 12:00] VITALS: BP 150/90
--- NOTE | 2019-05-23 12:25 | NUR ---
PATIENT C/O OF HEARTBURN, NO NAUSEA. INFORMED DR. POLANCO. WILL WAIT FOR NEW ORDERS.
[2019-05-23] MEDS ORDERED: DICYCLOMINE HCL LIQUID 20 MG, ALUMINUM HYD/MAG/SIMETHICONE 30 ML, LIDOCAINE VISCOUS 2% ... PO SCH ×3 (12:40)
--- NOTE | 2019-05-23 12:41 | NUR ---
NEW ORDER IN. ORDERED MEDICATION GIVEN. PATIENT TOLERATING IT. PATIENT CURRENTLY SITTING UP IN BED EATING FULL LIQUID LUNCH. ALL NEEDS MET AT THE MOMENT, WILL CONTINUE TO MONITOR PATIENT.
--- NOTE | 2019-05-23 15:30 | NUR ---
PATIENT RESTING IN BED WATCHING TV. DENIES PAIN AT THE MOMENT. STATES HEARTBURN IS BETTER. WILL CONTINUE TO MONITOR PATIENT.
[2019-05-23 16:00] VITALS: BP 152/87
[2019-05-23] MEDS ORDERED: ALUMINUM HYD/MAG/SIMETHICONE 30 ML UDC PO PRN (18:10)
--- NOTE | 2019-05-23 18:35 | NUR ---
PATIENT WENT TO SHOWER. PATIENT AWARE OF PENDING DISCHARGE. WILL WAIT UNTIL PATIENT DONE WITH SHOWER, THEN CONTINUE WITH DISCHARGE.
--- NOTE | 2019-05-23 19:06 | NUR ---
DISCHARGE INSTRUCTIONS AND EDUCATION GIVEN TO PATIENT. PATIENT INFORMED SHOULD FOLLOW UP WITH PCP. PATIENT VERBALIZED UNDERSTANDING. PATIENT WILL NOW CALL HIS BROTHER TO BE THERMOMETER MAKER TO BE DISCHARGED HOME. PATIENT IS CHANGING INTO HIS OWN CLOTHING. TELE MONITOR REMOVED. WILL CONTINUE TO MONITOR PATIENT AND ENDORSE TO ORDER BUILDER NURSE.
--- NOTE | 2019-05-23 19:25 | NUR ---
IV REMOVED, IV CATHETER INTACT, MINIMAL BLEEDING NOTED, ID BANDS CUT. PATIENT WALKED OFF FLOOR WITH RADIO PRESENTER, BROTHER PICKING HIM UP TO BE DISCHARGED HOME.
== END 2019-05-23 19:25 | disposition home or self-care (01) | DRG 241 ==
LOC: MED 05:45 → MMU 14:04
PROVIDERS: ADMIT General Practice; ATTEND General Practice
DX: K29.70 Gastritis, unspecified, without bleeding (principal); E87.2 Acidosis; E72.4 Disorders of ornithine metabolism; E83.42 Hypomagnesemia; E87.6 Hypokalemia; E86.0 Dehydration; F15.10 Other stimulant abuse, uncomplicated; R07.89 Other chest pain; K21.9 Gastro-esophageal reflux disease without esophagitis; Z59.0 Homelessness; Z91.14 Patient's other noncompliance with medication regimen
CPT/HCPCS: 36415; 71045; 80053; 80305; 81001; 82140; 82150; 83036; 83605; 83690; 83735; 83880; 84100; 84439; 84443; 84484; 85025; 85610; 85730; 87040; 87081; 87086; 93005; 96361; 96374; 96375; 99285; C1758; G0482; J1644; J2270; J2405; J2765; J7030; Q0092

== ENCOUNTER 2019-06-22 18:55 | Inpatient (IN) | payer MEDICAID ==
[~2019-06-22] VITALS: Ht 172.7 cm; Wt 66.7 kg
--- NOTE | 2019-06-22 18:57 | NUR ---
PT BIBA TO BED 03.
[2019-06-22 18:59] VITALS: BP 135/107
--- NOTE | 2019-06-22 19:00 | NUR ---
48/M PRESENTED TO ED BIBA FOUND LAYING FRONT OF STORE, PT C/O ABD PAIN W/ N/V. ALERT AND ORIENTED X4 ABLE TO MAKE NEEDS KNOWN. PT IS LAYING IN BED ABD GUARDING AND SAYS IT HELPS THE PAIN. PAIN 10/10 AT THIS TIME. EMESIS BAG AT BEDSIDE. PT CHANGED INTO GOWN. PLACED ON MONITOR. VSS. PMH HEP. C
[2019-06-22] MEDS ORDERED: diphenhydrAMINE 50 MG/ML VIAL IVP ONE (19:05)
[2019-06-22] MEDS ORDERED: NACL 0.9% 1,000 ML IV ONE (19:05)
[2019-06-22] MEDS ORDERED: METOCLOPRAMIDE 10 MG/2 ML INJ VIAL IVP ONE (19:05)
[2019-06-22 19:48] LABS: BASOPHILS % (AUTO) 0.4 % (0.0-2.0); EOSINOPHILS # (AUTO) 0.1 K/uL (0-0.4); EOSINOPHILS % (AUTO) 0.5 % (0.0-4.0); HEMATOCRIT 48.7 % (36-52); HEMOGLOBIN 16.3 g/dL (12.0-18.0); LYMPHOCYTES # (AUTO) 0.7 K/uL (2.0-11.5); LYMPHOCYTES % (AUTO) 6.7 % (20.5-51.1); MEAN CORPUSCULAR HEMOGLOBIN 32 pg (27-31); MEAN CORPUSCULAR HGB CONC 34 g/dL (33-37); MEAN CORPUSCULAR VOLUME 96.3 fL (80-94); MONOCYTES # (AUTO) 0.6 K/uL (0.8-1.0); MONOCYTES % (AUTO) 5.8 % (1.7-9.3); NEUTROPHILS # (AUTO) 9.3 K/uL (1.8-7.7); NEUTROPHILS % (AUTO) 86.6 % (42.2-75.2); PLATELET COUNT (AUTO) 287 K/uL (140-450); RED BLOOD CELL COUNT(AUTO) 5.06 MIL/uL (4.20-6.10); RED CELL DISTRIBUTION WIDTH 12.9 % (11.6-13.7); WHITE BLOOD COUNT (AUTO) 10.8 K/uL (4.8-10.8)
--- NOTE | 2019-06-22 20:00 | NUR ---
PT BEHAVIOR IS ABORMAL AT THIS TIME. PT DROWSY DIFFICULT TO AROUSE. WHEN AROUSED AND ASKED IF HE KNOWS WHERE HE IS, PT GIVES BLANK STARE AND SAYS "I'M HEARING VOICES". PT TWITCHES DURING SLEEP NOTED. MADE CHARGE NURSE AWARE. WILL CONTINUE TO MONITOR.
--- NOTE | 2019-06-22 20:10 | NUR ---
STRAIGHT CATH PERFORMED. URINE COLLECTED. TOLERATED WELL. WILL CONTINUE TO MONITOR.
[2019-06-22 20:16] LABS: ALBUMIN 3.9 g/dL (3.4-5.0); ANION GAP 11.5 (8-16); ASPARTATE AMINOTRANSFERASE 29 U/L (15-37); CARBON DIOXIDE 34.1 mmol/L (21-32); CHLORIDE 96 mmol/L (98-107); CREATININE 0.9 mg/dL (0.7-1.3); GFR ARICAN-AMERICAN 115 mL/min (>90); GLUCOSE 121 mg/dL (74-106); TOTAL BILIRUBIN 0.7 mg/dL (0.0-1.0); UREA NITROGEN, BLOOD 12 mg/dL (7-18)
[2019-06-22 20:42] LABS: SALICYLATE < 2.8 mg/dL (2.8-20.0)
[2019-06-22 20:45] LABS: SODIUM SERUM 139 mmol/L (136-145)
[2019-06-22 20:48] LABS: POTASSIUM 2.6 mmol/L (3.5-5.1)
[2019-06-22] MEDS ORDERED: POTASSIUM CHLORIDE 10 MEQ TABER PO ONE (21:05)
[2019-06-22] MEDS ORDERED: KCL 20 MEQ/WATER INJ PREMIX 100 ML IV ONE (21:05)
[2019-06-22 21:06] LABS: ACETAMINOPHEN < 0.5 ug/ml (10-30)
[2019-06-22 21:19] LABS: BARBITURATE, URINE NEG. ng/ml (NEG <=200); BENZODIAZEPINE, URINE NEG. ng/mL (NEG <=200); CANNABINOID, URINE NEG. ng/mL (NEG <=50); COCAINE, URINE NEG. ng/mL (NEG <=300); OPIATE, URINE NEG. ng/mL (NEG <=2000); PHENCYCLIDINE SCREEN,URINE NEG. ng/mL (NEG <=25)
[2019-06-22] MEDS ORDERED: HYDROcodone/APAP 7.5/325 MG 1 TAB PO PRN (21:30)
[2019-06-22] MEDS ORDERED: ACETAMINOPHEN 325 MG TAB PO PRN (21:30)
[2019-06-22] MEDS ORDERED: MORPHINE SULFATE 2 MG/ML SYR IVP PRN (21:30)
[2019-06-22] MEDS ORDERED: ONDANSETRON 4 MG/2 ML VIAL IM/IVP PRN (21:30)
--- NOTE | 2019-06-22 21:34 | NUR ---
XRAY AT BEDSIDE
[2019-06-22 21:55] LABS: PROTHROMBIN TIME 10.2 secs (10.8-13.4)
[2019-06-22] MEDS ORDERED: KCL 20 MEQ/WATER INJ PREMIX 200 ML IV ONE (21:55)
[2019-06-22] MEDS ORDERED: LORazepam 2 MG/ML VIAL IVP PRN (21:55)
[2019-06-22 22:10] LABS: CHOL/HDL RATIO 2.4 (1-4.5); FREE T4 (FREE THYROXINE) 1.21 ng/dL (0.76-1.46); MAGNESIUM 1.9 mg/dL (1.8-2.4); PHOSPHORUS 3.6 mg/dL (2.5-4.9); THYROID STIMULATING HORMONE 3.6 uIU/mL (0.34-3.74)
--- NOTE | 2019-06-22 22:25 | NUR ---
RECEIVED BEDSIDE REPORT FROM RACIEL BESS. PT IS AAOX4 ON RA. RESPIRATIONS ARE EQUAL AND UNLABORED. SKIN IS INTACT. PT IS HOMELESS DENIES STAYING IN SHELTERS. IV ON L HAND 20G CURRENTLY K RIDER AND NS INFUSING. DENIES ANY NAUSEA BOWEL SOUNDS ACTIVE X4. LBM 06/21 PER PT. DENIES PAIN AT THIS TIME. ORDER FOR NPO. MRSA SWAB OBTAINED. VS: 120/74 HR 57 95% RA 98.9 RR 16 DENIES PAIN. POC DISCUSSED WITH PT. CALL LIGHT IS WITHIN REACH. WILL ROUND FREQUENTLY.
--- NOTE | 2019-06-22 22:25 | NUR ---
Patient will be admitted to care of [facility]. Admited to TELE. Will go to room 105B. Belongings list completed. Report to NICK BESS.
[2019-06-22 22:30] VITALS: BP 120/74
--- NOTE | 2019-06-22 22:30 | NUR ---
DOCTOR IN TO SEE PATIENT. WILL F/U WITH NEW ORDERS.
[2019-06-22 22:34] LABS: BILIRUBIN,URINE NEGATIVE (NEGATIVE); BLOOD, URINE NEGATIVE (NEGATIVE); COLOR,URINE YELLOW (YELLOW); LEUKOCYTE ESTERASE ,URINE NEGATIVE (NEGATIVE); NITRITE, URINE NEGATIVE (NEGATIVE); PH,URINE 8.5 (5.0-9.0); UGLUCOSE NEGATIVE (NEGATIVE)
[2019-06-22 22:35] LABS: APPEARANCE,URINE CLEAR (CLEAR)
[2019-06-22] MEDS: NACL 0.9% 1,000 ML IV SCH (22:38)
--- NOTE | 2019-06-22 22:50 | NUR ---
PT REFUSED EKG. MD CHANDRA AWARE.
[2019-06-22] MEDS ORDERED: QUEtiapine FUMARATE 25 MG TAB PO SCH (23:00)
[2019-06-23] VITALS: BP 118/65
--- NOTE | 2019-06-23 | NUR ---
VITAL SIGNS ARE WITHIN NORMAL LIMITS. ALL NEEDS MET AT THIS TIME. WILL CONTINUE TO MONITOR.
--- NOTE | 2019-06-23 02:13 | NUR ---
PATIENT IS SLEEPING COMFORTABLY IN BED. RESPIRATIONS ARE EQUAL AND UNLABORED. CALL LIGHT IS WITHIN REACH.
[2019-06-23 04:00] VITALS: BP 120/73
--- NOTE | 2019-06-23 04:00 | NUR ---
VITAL SIGNS ARE WITHIN NORMAL LIMITS. ALL NEEDS MET AT THIS TIME. WILL CONTINUE TO MONITOR.
[2019-06-23 06:15] LABS: BASOPHILS # (AUTO) 0.1 K/uL (0.00-0.22); BASOPHILS % (AUTO) 0.6 % (0.0-2.0); EOSINOPHILS # (AUTO) 0.1 K/uL (0-0.4); EOSINOPHILS % (AUTO) 0.7 % (0.0-4.0); HEMATOCRIT 47.2 % (36-52); HEMOGLOBIN 15.8 g/dL (12.0-18.0); MEAN CORPUSCULAR HEMOGLOBIN 33 pg (27-31); MEAN CORPUSCULAR HGB CONC 34 g/dL (33-37); MONOCYTES # (AUTO) 0.8 K/uL (0.8-1.0); MONOCYTES % (AUTO) 8.9 % (1.7-9.3); NEUTROPHILS # (AUTO) 7.6 K/uL (1.8-7.7); NEUTROPHILS % (AUTO) 79.8 % (42.2-75.2); PLATELET COUNT (AUTO) 263 K/uL (140-450); RED BLOOD CELL COUNT(AUTO) 4.87 MIL/uL (4.20-6.10); RED CELL DISTRIBUTION WIDTH 12.9 % (11.6-13.7); WHITE BLOOD COUNT (AUTO) 9.5 K/uL (4.8-10.8)
[2019-06-23 06:37] LABS: ANION GAP 13.1 (8-16); CARBON DIOXIDE 27.6 mmol/L (21-32); CREATININE 0.9 mg/dL (0.7-1.3); POTASSIUM 3.7 mmol/L (3.5-5.1)
--- NOTE | 2019-06-23 07:17 | NUR ---
GAVE BEDSIDE REPORT TO DAY RN. PT ENDORSED IN STABLE CONDITION.
--- NOTE | 2019-06-23 07:20 | NUR ---
Received report from material handler 2nd shift nurse. Pt sleeping in bed. No signs of distress noted. No C/O pain. Call light in reach. [id number]
[2019-06-23 08:00] VITALS: BP 119/73
--- NOTE | 2019-06-23 08:30 | NUR ---
PATIENT HAS BEEN SCREENED AND CATEGORIZED HIGH NUTRITION RISK. PATIENT WILL BE SEEN WITHIN 1-2 DAYS OF ADMISSION. 06/23/19-06/24/[address]
[2019-06-23] MEDS ORDERED: LACTULOSE 20 GM/30 ML UDC PO SCH (10:30)
[2019-06-23 12:00] VITALS: BP 146/94
--- NOTE | 2019-06-23 12:00 | NUR ---
Pt was agitated about his food tray. Checked with the patient. Patient told that he tried to pull the table and the tray fell down. Pt's IV on his left hand was found on the bed. Cleaned hand. IV was intact with catheter. [id number]
[2019-06-23] MEDS: NACL 0.9% 1,000 ML IV SCH ×2 (12:25→22:25)
--- NOTE | 2019-06-23 13:07 | NUR ---
06/23/19 RD INITIAL ASSESSMENT COMPLETED PLEASE REFER TO NUTRITION ASSESSMENT UNDER CARE ACTIVITY FOR ESTIMATED NUTRITIONAL NEEDS. 1. CONTINUE CLEAR LIQUID DIET TOLERATED 2. IF/WHEN PT IS MEDICALLY STABLE ADVANCE TO BLAND DIET 3. RD TO FOLLOW-UP 2-3 DAYS, HIGH RISK KATHIA RAYA, BORA
--- NOTE | 2019-06-23 14:00 | NUR ---
Pt is resting in bed. No C/O pain. No in distress. Call light in reach. [id number]
--- NOTE | 2019-06-23 15:57 | NUR ---
SW attempted to conduct assessment with patient. Patient refused. SW/CM will follow up as needed.
[2019-06-23 16:00] VITALS: BP 141/82
--- NOTE | 2019-06-23 16:00 | NUR ---
Inserted IV to left hand 24 G. Pt tolerated well. No signs of distress. Call light in reach.
--- NOTE | 2019-06-23 19:32 | NUR ---
Shift report given to rental agent nurse. Pt in bed resting. Call light in reach.
--- NOTE | 2019-06-23 19:33 | NUR ---
RECEIVED BEDSIDE REPORT FROM DAY RN. PT IS AAOX4 ON RA. RESPIRATIONS ARE EQUAL AND UNLABORED. SKIN IS INTACT. PT IS HOMELESS DENIES STAYING IN ANY SHELTERS. IV ON L HAND 24G IVF INFUSING PER ORDERS. DENIES ANY NAUSEA BOWEL SOUNDS ACTIVE X4. NO BM TODAY. HAS NEW ORDER OF LACTULOSE FOR CONSTIPATION PT ALSO REPORT MALNUTRITION. NEW DIET FOR CLEAR LIQUID WILL ADVANCE TOLERATED. DENIES PAIN AT THIS TIME. POC DISCUSSED WITH PT. CALL LIGHT IS WITHIN REACH. WILL ROUND FREQUENTLY.
[2019-06-23 20:00] VITALS: BP 128/77
[2019-06-23] MEDS: QUEtiapine FUMARATE 25 MG TAB PO SCH (20:04)
[2019-06-23] MEDS: LACTULOSE 20 GM/30 ML UDC PO SCH (20:07)
--- NOTE | 2019-06-23 20:07 | NUR ---
VITAL SIGNS ARE WITHIN NORMAL LIMITS. DAVID MEDICATIONS GIVEN PER ORDERS. ALL NEEDS MET AT THIS TIME. CALL LIGHT IS WITHIN REACH. WILL ROUND FREQUENTLY.
--- NOTE | 2019-06-23 21:30 | NUR ---
PATIENT PULLED OUT IV ON L HAND. IV CATH IS INTACT NEW IV ON L FA 22G. FLUSHING WELL. IVF INFUSING PER ORDERS. WILL CONTINUE TO MONITOR.
--- NOTE | 2019-06-23 22:30 | NUR ---
PATIENT IS SLEEPING COMFORTABLY IN BED. RESPIRATIONS ARE EQUAL AND UNLABORED. CALL LIGHT IS WITHIN REACH. WILL CONTINUE TO MONITOR.
[2019-06-24] VITALS: BP 131/78
--- NOTE | 2019-06-24 | NUR ---
VITAL SIGNS ARE WITHIN NORMAL LIMITS. NO S/S OF DISTRESS. SAFETY MEASURES ARE IN PLACE. CALL LIGHT IS WITHIN REACH. WILL CONTINUE TO MONITOR.
--- NOTE | 2019-06-24 02:15 | NUR ---
ORDER TO TRANSFER TO MED SURG. TELE BOX REMOVED. PT SLEEPING COMFORTABLY IN BED. CHEST RISE AND FALL. CALL LIGHT IS WITHIN REACH. WILL CONTINUE TO MONITOR.
--- NOTE | 2019-06-24 04:23 | NUR ---
PT IS LAYING COMFORTABLY IN BED. NO S/S OF DISTRESS. CALL LIGHT IS WITHIN REACH
--- NOTE | 2019-06-24 05:42 | NUR ---
WALKED IN FOUND IV ON BED. PT STATES IT CAME OUT. IV CATH IS INTACT. NO S/S OF INFILTRATION. ATTEMPTED TO START IV UNSUCCESSFUL. WILL ASK CHARGE NURSE TO TRY. NO S/S OF DISTRESS. WILL CONTINUE TO MONITOR
[2019-06-24 06:16] LABS: BASOPHILS # (AUTO) 0.1 K/uL (0.00-0.22); BASOPHILS % (AUTO) 0.9 % (0.0-2.0); EOSINOPHILS # (AUTO) 0.2 K/uL (0-0.4); EOSINOPHILS % (AUTO) 2.3 % (0.0-4.0); HEMATOCRIT 47.2 % (36-52); HEMOGLOBIN 15.5 g/dL (12.0-18.0); LYMPHOCYTES # (AUTO) 0.9 K/uL (2.0-11.5); LYMPHOCYTES % (AUTO) 12.1 % (20.5-51.1); MEAN CORPUSCULAR HEMOGLOBIN 32 pg (27-31); MEAN CORPUSCULAR HGB CONC 33 g/dL (33-37); MEAN CORPUSCULAR VOLUME 97.7 fL (80-94); MONOCYTES # (AUTO) 0.6 K/uL (0.8-1.0); NEUTROPHILS # (AUTO) 5.5 K/uL (1.8-7.7); NEUTROPHILS % (AUTO) 75.7 % (42.2-75.2); PLATELET COUNT (AUTO) 229 K/uL (140-450); RED BLOOD CELL COUNT(AUTO) 4.83 MIL/uL (4.20-6.10); RED CELL DISTRIBUTION WIDTH 13.1 % (11.6-13.7); WHITE BLOOD COUNT (AUTO) 7.2 K/uL (4.8-10.8)
[2019-06-24 06:50] LABS: ANION GAP 13.8 (8-16); CARBON DIOXIDE 23.2 mmol/L (21-32); CREATININE 0.7 mg/dL (0.7-1.3)
[2019-06-24 06:55] LABS: PHOSPHORUS 2.1 mg/dL (2.5-4.9)
[2019-06-24 07:01] LABS: MAGNESIUM 1.8 mg/dL (1.8-2.4)
--- NOTE | 2019-06-24 07:06 | NUR ---
RECEIVED PATIENT FROM NIGHT RN. PATIENT IS FULL CODE, NKA, ON ROOM AIR. PATIENT HAS A NEW IV TO LEFT WRIST 22G. PT IS AAOX4. CURRENTLY PATIENT IS RESTING IN BED AWAKE, NO SIGNS OF DISTRESS. WILL CONTINUE WITH PLAN OF CARE FOR THE DAY.
--- NOTE | 2019-06-24 07:35 | NUR ---
GAVE BEDSIDE REPORT TO DAY RN. PT ENDORSED IN STABLE CONDITION.
[2019-06-24 08:00] VITALS: BP 134/101
[2019-06-24] MEDS: LACTULOSE 20 GM/30 ML UDC PO SCH ×2 (08:27→21:14)
--- NOTE | 2019-06-24 08:30 | NUR ---
ADMINISTERED MORNING MEDICATION TO PATIENT. PATIENT TOLERATED WELL. NO COMPLAINTS AT THIS TIME. VITAL SIGNS WNL
[2019-06-24] MEDS: NACL 0.9% 1,000 ML IV SCH ×2 (08:52→18:25)
[2019-06-24] MEDS ORDERED: SODIUM PHOS / POTASSIUM PHOS 1 PKT PDR PO SCH (08:54)
--- NOTE | 2019-06-24 10:50 | NUR ---
PT C/O SOB. TOOK VITAL SIGNS, BP 130/91, HR 61, O2 98% ON ROOM AIR. OFFERED PATIENT ATIVAN PRN FOR ANXIOUSNESS AND RESTLESSNESS. PATIENT STATED HE WOULD LIKE IT.
--- NOTE | 2019-06-24 11:16 | NUR ---
ADMINISTERED IVP ATIVAN FOR ANXIETY.
--- NOTE | 2019-06-24 13:00 | NUR ---
PT IS SLEEPING IN BED. VISIBLE CHEST RISE AND FALL. NO SIGNS OF RESP DISTRESS. NO COMPLAINTS AT THIS TIME
--- NOTE | 2019-06-24 15:44 | NUR ---
PATIENT IS UP AND AMBULATING TO RESTROOM WITH CELERY WRAPPER FOR A SHOWER. IV SITE WRAPPED AND TAPED PRIOR.
[2019-06-24 16:00] VITALS: BP 148/97
--- NOTE | 2019-06-24 18:44 | NUR ---
PATIENT IS SLEEPING IN BED. NO COMPLAINTS AT THIS TIME. WILL ENDORSE TO MEAT CURER FOR CONTINUITY OF CARE.
--- NOTE | 2019-06-24 19:20 | NUR ---
RECEIVED BEDSIDE REPORT FROM DAY SHIFT NURSE. PATIENT IS SLEEPING AROUSABLE BY NAME AND TOUCH. RESPIRATION EVEN UNLABORED ON ROOM AIR. NO DISTRESS NOTED. SKIN IS WARM AND DRY. IV PATENT AND INTACT. DENIES PAIN. PLAN OF CARE WAS DISCUSSED. ALL SAFETY MEASURES IN PLACE. BED IS AT LOW POSITION. CALL LIGHT WITHIN REACH AND VERBALIZES ITS USE. WILL CONTINUE TO MONITOR.
--- NOTE | 2019-06-24 20:00 | NUR ---
INITIAL ASSESSMENT DONE. VITALS WERE TAKEN. PATIENT IN STABLE CONDITION. WILL CONTINUE TO MONITOR.
--- NOTE | 2019-06-24 21:00 | NUR ---
ALL SCHEDULED MEDS WERE GIVEN PER ORDER. NO ASE NOTED. WILL CONTINUE TO MONITOR.
[2019-06-24] MEDS: QUEtiapine FUMARATE 25 MG TAB PO SCH (21:14)
--- NOTE | 2019-06-24 22:20 | NUR ---
PATIENT COMPLAINING OF HEART BURN AND DIFFICULT FALLING ASLEEP. PER PATIENT HE STATED THAT SEROQUEL DID NOT WORK FOR HIM AND WANTS ANOTHER SLEEPING AID. WILL NOTIFY
[2019-06-24] MEDS ORDERED: ALUMINUM HYD/MAG/SIMETHICONE 30 ML UDC PO PRN (22:25)
--- NOTE | 2019-06-24 22:25 | NUR ---
SPOKE TO DR. CHANDRA REGARDING PATIENT CONDITION. AWAITING FOR HIS ORDER.
[2019-06-24] MEDS ORDERED: ZOLPIDEM 5 MG TAB PO SCH (22:30)
--- NOTE | 2019-06-24 22:48 | NUR ---
ADMINISTERED MAALOX FOR GERD AND AMBIEN FOR SLEEP PER DR. MURRAY. WILL CONTINUE TO MONITOR.
[2019-06-25] VITALS: BP 133/57
--- NOTE | 2019-06-25 | NUR ---
VITALS WERE TAKEN. PATIENT WOKE UP TO HAVE A BOWEL MOVEMENT AND NOW UPSET THAT HE CANT FALL ASLEEP. PATIENT IS ASKING FOR ANOTHER DOSE OF SLEEPING PILLS. WILL NOTIFY .
[2019-06-25] MEDS ORDERED: ZOLPIDEM 5 MG TAB PO SCH (00:45)
--- NOTE | 2019-06-25 02:18 | NUR ---
CHECKED ON PATIENT. PATIENT SLEEPING RESPIRATION EVEN UNLABORED ON ROOM AIR. NO DISTRESS NOTED. WILL CONTINUE TO MONITOR.
--- NOTE | 2019-06-25 03:38 | NUR ---
PATIENT HAD ANOTHER EPISODE OF BOWEL MOVEMENT.
--- NOTE | 2019-06-25 04:00 | NUR ---
PATIENT IV GOT PULLED OUT ACCIDENTALLY. NO ACTIVE BLEEDING SEEN. CANNULA TIP INTACT. INSERT NEW IV TO THE LEFT WRIST 20G.
[2019-06-25] MEDS: NACL 0.9% 1,000 ML IV SCH (04:25)
--- NOTE | 2019-06-25 05:40 | NUR ---
PATIENT IS FRUSTRATED DUE TO UNCONTROLLED DIARRHEA FROM LACTULOSE MEDICATION. EXPLAINED TO THE PATIENT THE PURPOSE OF MEDICATION AGAIN. PATIENT VERBALIZE UNDERSTANDING. WILL CONTINUE TO MONITOR.
[2019-06-25 06:26] LABS: HEMATOCRIT 48.2 % (36-52); HEMOGLOBIN 16.1 g/dL (12.0-18.0); MEAN CORPUSCULAR HEMOGLOBIN 32 pg (27-31); MEAN CORPUSCULAR HGB CONC 34 g/dL (33-37); MEAN CORPUSCULAR VOLUME 96.7 fL (80-94); PLATELET COUNT (AUTO) 306 K/uL (140-450); RED BLOOD CELL COUNT(AUTO) 4.99 MIL/uL (4.20-6.10)
[2019-06-25 06:42] LABS: CARBON DIOXIDE 23.1 mmol/L (21-32); CREATININE 0.7 mg/dL (0.7-1.3); POTASSIUM 4.1 mmol/L (3.5-5.1)
[2019-06-25 06:56] LABS: PHOSPHORUS 2.5 mg/dL (2.5-4.9)
--- NOTE | 2019-06-25 07:05 | NUR ---
RECEIVED REPORT FROM NIGHT RN. PATIENT IS AWAKE AND IN BED. FULL CODE, NKA, ON ROOM AIR. WAS ENDORSED THAT PATIENT PULLED OUT IV LINE OVER NIGHT. NEW IV LINE TO LEFT WRIST 22G. WILL CONTINUE WITH PLAN OF CARE FOR THE DAY.
--- NOTE | 2019-06-25 07:14 | NUR ---
ENDORSED PATIENT TO DAY SHIFT NURSE. PATIENT IN STABLE CONDITION.
[2019-06-25 08:00] VITALS: BP 137/102
[2019-06-25] MEDS ORDERED: FAMOTIDINE 20 MG/2 ML VIAL IV SCH (09:00)
--- NOTE | 2019-06-25 09:00 | NUR ---
PATIENT REFUSED MORNING DOSE OF HEPARIN
--- NOTE | 2019-06-25 09:30 | NUR ---
PATIENT PULLED OUT IV LINE. PATIENT IS EXTREMELY AGITATED AND WALKED OUT OF ROOM TO THE SHOWER. CALLED SECURITY. SECURITY IS AT THE DOOR OF THE SHOWER MONITORING. WILL NOTIFY RESIDENTS FOR IM ATIVAN D/T NO IV ACCESS.
--- NOTE | 2019-06-25 09:42 | NUR ---
PATIENT HAS ELOPED OFF THE UNIT. NO IV LINE IN PLACE UPON ELOPEMENT.
[2019-06-25 10:55] LABS: EOSINOPHILS % (MANUAL) 2 % (0-4); LYMPHOCYTES % (MANUAL) 10 % (20-46); MONOCYTES % (MANUAL) 8 % (5-12)
== END 2019-06-25 10:30 | disposition left against medical advice (07) | DRG 812 ==
LOC: MED 18:55 → MTU 21:30
PROVIDERS: ADMIT General Practice; ATTEND General Practice
DX: T43.621A Poisoning by amphetamines, accidental (unintentional), initial encounter (principal); G92 Toxic encephalopathy; E87.5 Hyperkalemia; E83.39 Other disorders of phosphorus metabolism; K59.00 Constipation, unspecified; F15.129 Other stimulant abuse with intoxication, unspecified; A08.4 Viral intestinal infection, unspecified; E87.6 Hypokalemia; Z86.19 Personal history of other infectious and parasitic diseases; Z59.0 Homelessness; Y92.89 Other specified places as the place of occurrence of the external cause
CPT/HCPCS: 36415; 71045; 74018; 80048; 80053; 80305; 81003; 82550; 83036; 83605; 83690; 83735; 83880; 84100; 84439; 84443; 85025; 85610; 85730; 87081; 93005; 96361; 96374; 96375; 99285; G0480; G0482; J1200; J1644; J2060; J2765; J3480; J7030; Q0092

== ENCOUNTER 2019-07-30 23:32 | Emergency (ER) | payer MEDICAID ==
[~2019-07-30] VITALS: Ht 172.7 cm; Wt 59.0 kg
--- NOTE | 2019-07-30 23:33 | NUR ---
EMT AT PT BEDSIDE RECEIVING VITAL SIGNS FOR PT
--- NOTE | 2019-07-30 23:33 | NUR ---
PT BIBA C/O DIFFUSE ABDOMINAL PAIN X 2 DAYS. GIVEN ZOFRAN 4MG ON SCENE. PT HAS HX OF METH USE, SPICE. PER BROTHER "HIS LAST METH USE WAS 3 DAYS AGO BUT WOULD NOT SURPRISE ME IF HE DID IT TODAY" PT AWAKE AND ANSWERING QUESTIONS APPROPRIATELY. ALLERGIES: NKA MED HX: METH USE, SPICE, AND HEP C
--- NOTE | 2019-07-30 23:33 | NUR ---
UPON ENTERING THE ROOM, PATIENT VERBAILIZES THE NEED FOR A BLANKET, ICE CHIPS, AND EMESIS BAG. BROUGHT PATIENT A BLANKET AND EMESIS BAG. PATIENT VERBALIZED THANK YOU. ATTEMPTED TO TAKE PATIENT'S VITAL SIGNS, TEMPERATURE 98.6 TEMPORAL, OXYGEN SATURATION 97%, BUT UNABLE TO OBTAIN A BLOOD PRESSURE OR PULSE RATE. DURING ATTEMPT PATIENT MADE A LOUD GRUNTING SOUND FOLLOWED BY ABNORMAL MOVEMENTS AND MUSLCE CONTRACTIONS. PATIENT THEN BECAME CYANOTIC IN THE FACE AT WHICH POINT I CALLED OUT THE PATIENTS NAME WITH NO RESPONSE, FOLLOWED BY PAINFUL STIMULI WITH NO RESPONSE. CHECKED THE PATIENT'S CAROTID AND RADIAL PULSES WITH NO PULSES. CALLED FOR THE PHYSICIAN AND NURSE.
--- NOTE | 2019-07-30 23:42 | NUR ---
CPR INITATED. DR. MORA AT BEDSIDE. Addendum: 07/31/19 at 0318 by [facility] CPR INITATED. DR. MORA AT BEDSIDE. CODE STARTED AT 23:34.
[2019-07-30] MEDS ORDERED: ROCURONIUM 50 MG/5 ML VIAL IV ONE (23:44)
[2019-07-30] MEDS ORDERED: NALOXONE PFS 2 MG/2 ML SYR ONE (23:44)
[2019-07-30] MEDS ORDERED: ETOMIDATE 20 MG/10 ML VIAL IVP ONE (23:44)
[2019-07-30] MEDS ORDERED: SUCCINYLCHOLINE CHLORIDE 200 MG/10 ML VIAL IVP ONE (23:44)
[2019-07-30] MEDS ORDERED: FLUMAZENIL 0.5 MG/5 ML VIAL IVP ONE (23:46)
--- NOTE | 2019-07-31 00:23 | NUR ---
TIME OF CALLED BY DR MORA @ 00:23.
[2019-07-31 00:28] VITALS: BP 142/76
[2019-07-31 00:57] LABS: BASOPHILS # (AUTO) 0.1 K/uL (0.00-0.22); BASOPHILS % (AUTO) 0.6 % (0.0-2.0); EOSINOPHILS % (AUTO) 0.5 % (0.0-4.0); HEMATOCRIT 52.9 % (36-52); HEMOGLOBIN 17.3 g/dL (12.0-18.0); LYMPHOCYTES % (AUTO) 22.2 % (20.5-51.1); MEAN CORPUSCULAR HEMOGLOBIN 32 pg (27-31); MEAN CORPUSCULAR HGB CONC 33 g/dL (33-37); MEAN CORPUSCULAR VOLUME 98.7 fL (80-94); MONOCYTES # (AUTO) 0.8 K/uL (0.8-1.0); MONOCYTES % (AUTO) 9.3 % (1.7-9.3); NEUTROPHILS % (AUTO) 67.4 % (42.2-75.2); PLATELET COUNT (AUTO) 247 K/uL (140-450); RED BLOOD CELL COUNT(AUTO) 5.36 MIL/uL (4.20-6.10); RED CELL DISTRIBUTION WIDTH 12.8 % (11.6-13.7)
[2019-07-31 01:12] LABS: ALBUMIN 3.7 g/dL (3.4-5.0); ANION GAP 15.7 (8-16); CARBON DIOXIDE 33.8 mmol/L (21-32); CREATININE 1.9 mg/dL (0.7-1.3); POTASSIUM 3.5 mmol/L (3.5-5.1)
--- NOTE | 2019-07-31 01:38 | NUR ---
SPOKE TO [employer]. AWAITING FOR FILTER TANK TENDER HELPER CALL BACK.
--- NOTE | 2019-07-31 01:45 | NUR ---
ATTEMPTED TO CALL [facility] WITH PROVIDED NUMBER. NO ANSWER, BUSY SIGNAL. WILL CONTINUE ATTEMPTS TO CONTACT FAMILY.
[2019-07-31 01:54] LABS: BARBITURATE, URINE NEGATIVE ng/ml (NEG <=200); BENZODIAZEPINE, URINE NEGATIVE ng/mL (NEG <=200); CANNABINOID, URINE NEGATIVE ng/mL (NEG <=50); COCAINE, URINE NEGATIVE ng/mL (NEG <=300); OPIATE, URINE NEGATIVE ng/mL (NEG <=2000); PHENCYCLIDINE SCREEN,URINE NEGATIVE ng/mL (NEG <=25)
--- NOTE | 2019-07-31 01:58 | NUR ---
SPOKE TO [place] WITH [facility] [employer]. THEY WILL NOT PERSUE DONATION. BODY TO BE RELIEASED. .
--- NOTE | 2019-07-31 02:09 | NUR ---
ATTEMPTED TO CALL [facility] WITH PROVIDED NUMBER. NO ANSWER, BUSY SIGNAL. WILL CONTINUE ATTEMPTS TO CONTACT FAMILY.
--- NOTE | 2019-07-31 03:04 | NUR ---
SPOKE TO NIVIA TYSON [employer]. INSTRUCTED THIS IS A CORONERS CASE. CASE #[id number]
--- NOTE | 2019-07-31 04:00 | NUR ---
PATIENT'S BELONGINGS: CLOTHES AND SHOES PLACED IN BELONGINGS BAG; SECURITY NOTIFIED AND CALLED.
--- NOTE | 2019-07-31 04:13 | NUR ---
PT'S BELONGINGS INCLUDE $11 BLOCK; NECKLACE; 2 CHAPSTICKS;1 RING; 1 PIPE; 2 EGAN; 1 BRACELET AND 2 RUBBER BANDS WITNESSED WITH DOROTHY HOLT. SECURITY NOTIFIED AND CALLED Addendum: 07/31/19 at 0427 by MEDKHARI WATCH WITH [employer]
--- NOTE | 2019-07-31 04:20 | NUR ---
THE BODY WAS TAKEN BY [facility] OFFICE, CORONERS TRANSPORT YANET QUINN.
--- NOTE | 2019-07-31 04:22 | NUR ---
ATTEMPTED TO CALL [facility] LISTED NEXT OF KIN, BUSY SIGNAL.
== END 2019-07-31 00:23 | disposition expired ==
LOC: MED 23:32
DX: I46.9 Cardiac arrest, cause unspecified (principal); R10.9 Unspecified abdominal pain; F15.90 Other stimulant use, unspecified, uncomplicated; F12.90 Cannabis use, unspecified, uncomplicated; Z86.19 Personal history of other infectious and parasitic diseases
CPT/HCPCS: 31500; 36415; 80053; 80305; 83605; 84484; 85025; 99291; G0482; J0330; J2310; J3490